=== PATIENT | female | born 1955 | race Caucasian/White ===

== ENCOUNTER 2017-11-10 09:08 | Outpatient (RCR) | payer OTHER, SELFPAY ==
[2017-11-10 10:10] VITALS: BP 141/94; PULSE 101; RESP 18; TEMP 36.8; BMI 30.9
[2017-11-10 14:18] LABS: Absolute Lymphocyte Count 2.17 X10^3/ul (0.83-4.51); Absolute Neutrophil Count 3.8 X10^3/uL (2.0-7.7); Basophil# 0.07 X10^3/uL; Basophil% 1.1 % (0-1); Eosinophil# 0.13 X10^3/uL; Hemoglobin 13.3 g/dl (12.0-15.0); Lymphocyte # 2.17 X10^3/ul (4.0); Lymphocyte % 32.8 % (19-41); Mean Corp Hgb Conc 31.7 g/gl (32-36); Mean Corpuscular Hgb 28.7 pg (27.0-32.0); Mean Corpuscular Volume 90.5 fL (81-99); Mean Platelet Vol. 9.9 fl (6.2-12.0); Monocyte# 0.39 X10^3/uL; Monocyte% 5.9 % (0-10); Neutrophil # 3.84 X10^3/uL (2.7-7.7); Platelet Count 455 K/mm3 (150-450); RBC Distribution Width SD 46.4 fl (35.1-43.9); Red Blood Count 4.64 M/mm3 (4.2-5.4); White Blood Count 6.6 K/mm3 (4.4-11.0)
[2017-11-10 14:22] LABS: POSITIVE COUNT NO; POSITIVE DIFFERENTIAL NO; POSITIVE MORPHOLOGY NO
[2017-11-10 14:28] LABS: ALB/GLOB Ratio 0.8 RATIO (0.9-2.4); AST(SGOT) 14 U/L (15-37); Alanine Aminotransfer ALT/SGPT 21 U/L (13-56); Albumin, Serum 3.6 g/dL (3.2-5.0); Alkaline Phosphatase 111 U/L (45-117); Anion Gap 8 (5-15); BUN 16 mg/dL (7-18); BUN/Creat Ratio 21.6 RATIO (10-20); Calcium,Total 9.2 mg/dL (8.5-10.1); Chloride 103 mmol/L (98-107); Creatinine, Serum 0.74 mg/dL (0.55-1.02); EST Glomerular Filtration Rate 85 mL/min (>60); Est Glom Filt Rate - Afr Amer 103 mL/min (>60); Estimated Creatinine Clearance 69.81 ml/min; Globulin 4.5 g/dL (2.2-4.2); Glucose 86 mg/dL (74-106); Potassium 3.9 mmol/L (3.5-5.1); Prealbumin 24.8 mg/dL (20.0-40.0); Protein, Total 8.1 g/dL (6.4-8.2); Sodium Level 138 mmol/L (136-145)
[2017-11-10 14:31] LABS: Hemoglobin A1c 5.7 % (4.2-6.3)
--- NOTE | 2017-11-10 17:29 | PCM.WC.HP ---
(1) Non-pressure chronic ulcer of left lower leg with fat layer exposed Status: Acute Current Visit: Yes Code(s): L97.922 - Non-pressure chronic ulcer of unspecified part of left lower leg with fat layer exposed (2) Hypertension Status: Chronic Current Visit: Yes Code(s): I10 - Essential (primary) hypertension (3) Cellulitis of left lower extremity Status: Acute Current Visit: Yes Code(s): L03.116 - Cellulitis of left lower limb History of Present Illness Date of Service: 11/10/17 Chief Complaint: Chronic Left lower extremity (ankle) ulcer. History of Wound: MS. Calle is a 62 year old with PMH of Hyperyension who was referred to the wound clinic due to a chronic non healing ulcer. Initially noticed in June 2017 as a small black blister. She denies any known precipitating factors.Blister was said to subsequently open up and then she started putting tripple antibiotic ointment on it. However, she states the she noted worsening of the wound after she started putting something she found in a First aid box at work. she is unsure of the name. She has also been putting essentail oil around the wound but denies putting it in the wound. Most recently, she has noted increased tenderness and redness of the the wound and area surrounding the wound. She attests to occassional discharge from the wound. She denies any known history of diabetes mellitus, arterial or venous insuficiency. she feels well otherwsie and denies chills, fever, nausea, vomitting or a change in her bowel habit. Past Medical History Past Medical History: Chronic Problems Hypertension (Chronic) Allergies/Adverse Reactions: Allergies No Known Allergies Allergy (Verified 11/10/17 10:23) Home Medications: Ambulatory Orders Medication Instructions Recorded Telmisartan 40 mg PO DAILY 11/10/17 Smoking Status: Never smoker Tobacco Use: Non-smoker Alcohol: None Review of Systems Constitutional: Denies: Anorexia, Chills, Fever Eyes: Denies: Pain, Redness HEENT: Denies: Difficulty Hearing, Difficulty Swallowing Cardiovascular: Denies: Chest Pain, Chest Tightness Respiratory: Denies: Hemoptysis Gastrointestinal: Denies: Abdominal Pain, Hematemesis, Vomiting - Physical Exam Vital Signs Temp Pulse Resp BP 98.2 F 101 H 18 141/94 H 11/10/17 10:10 11/10/17 10:10 11/10/17 10:10 11/10/17 10:10 General: Alert, Oriented x3, Cooperative, No apparent distress HEENT: Atraumatic, Normocephalic Oral: Moist Mucosa Neck: Supple Lungs: Normal air movement Cardiovascular: Regular rate Extremities: No cyanosis, Edema Skin: Ulcer/ Wound Wound Measurements and Assessment WC - Nurse 1 - General Ulcer Measurement Start: 11/10/17 10:09 Freq: Status: Active Protocol: Activity Type Activity Date Activity User E-Sign Co-Sign Detail Recorded Client Recorded Date Recorded By Document 11/10/17 10:10 [id number] 11/10/17 10:22 TM 11/10/17 10:10 Wound Center Nurse 1 [Ulcer Assessment] #1 left medial ankle -Combined with other wound No -Current Size (cm) - Length 1.9 -Current Size (cm) - Width 1.7 -Current Size (cm) - Depth 0.5 -Total Square Cm 3.23 -Date of Last Picture (Recall this 11/10/17 field) -Photo Taken Yes -Epithelialization None Present -Tunneling No -Undermining/Tunneling No -Circular Undermining Yes -Classification - Thickness Full Thickness with Exposed Support Structure -Exudate Amt Medium (34-66%) -Exudate Type Yellow/Green -Wound Margin Fibrotic Scar, Thickened Scar -Granulation Amt None Present (0 %) -Granulation Quality N/A -Slough/Fibrin Yes -Necrotic Tissue Type Adherent Slough -Structure Exposed Tendon Fascia Fat Layer Exposed -Texture (Emma-wound Skin Appearance) Excoriation Friable Localized Edema Scarring -Moisture (Emma-wound Skin Appearance No Abnormality ) -Color (Emma-wound Skin Appearance) Erythema Hemosiderin Staining -Temperature (Emma-wound Skin Hot Appearance) -Tenderness on Palpation (Emma-wound Yes Skin Appearance) -Ulcer Cleansing Rinsed/ Irrigated with Saline -Foul Odor after Cleansing No -Anesthetic Used 5% Lidocaine Gel [Edema Assessment] -Lower Limb Edema Present Yes -Right Calf (cm) 35.2 -Right Ankle (cm) 21.2 -Left Calf (cm) 39.5 -Left Ankle (cm) 24.8 WC - Nurse 2 - General Ulcer CM Notes Start: 11/10/17 10:09 Freq: Status: Active Protocol: Activity Type Activity Date Activity User E-Sign Co-Sign Detail Recorded Client Recorded Date Recorded By Document 11/10/17 10:22 DV [id number] 11/10/17 11:17 DV 11/10/17 10:22 Wound Center Nurse 2 [Procedure/Treatment] #1 left medial ankle -Time 11:16 -Correct Patient Yes -Correct Side, Site, Position Yes -Correct Procedure Yes -Procedure Performed Yes -Type of Procedure Debridement -Clinical Debridement Subcutaneous -Post Debridement Size (cm) - Length 1.9 -Post Debridement Size (cm) - Width 2.0 -Post Debridement Size (cm) - Depth 0.6 -Total Square Cm 3.80 -Wound/Ulcer Outcome Not Healed -Ulcer Cleansing Rinsed/ Irrigated with Saline -Foul Odor after Cleansing No -Bioengineered Tissue No -Bleeding Controlled with Pressure -Treatment Response Procedure Tolerated Well [See Physician Procedure note for Specifics] Pain Scale: 0-10 Numeric [Pain] -Is Patient Pain Free? Yes Musculoskeletal: No Muscle Wasting Neurological: Cranial nerves II-XII grossly intact Psych/Mental Status: Normal Affect Debridement Note Post-Debridement Measurements/Treatment WC - Nurse 2 - General Ulcer CM Notes Start: 11/10/17 10:09 Freq: Status: Active Protocol: Activity Type Activity Date Activity User E-Sign Co-Sign Detail Recorded Client Recorded Date Recorded By Document 11/10/17 10:22 DV [id number] 11/10/17 11:17 DV 11/10/17 10:22 Wound Center Nurse 2 #1 left medial ankle -Time 11:16 -Correct Patient Yes -Correct Side, Site, Position Yes -Correct Procedure Yes -Procedure Performed Yes -Type of Procedure Debridement -Clinical Debridement Subcutaneous -Post Debridement Size (cm) - Length 1.9 -Post Debridement Size (cm) - Width 2.0 -Post Debridement Size (cm) - Depth 0.6 -Total Square Cm 3.80 -Wound/Ulcer Outcome Not Healed -Ulcer Cleansing Rinsed/ Irrigated with Saline -Foul Odor after Cleansing No -Bioengineered Tissue No -Bleeding Controlled with Pressure -Treatment Response Procedure Tolerated Well Pain Scale: 0-10 Numeric Is Patient Pain Free? Yes Wound debrided: Left medial ankle. Wound Grade/Stage: Non pressure ulcer. Stage II Type of Debridement: Excisional debridement Anesthesia Used: 4% Lidocaine Solution Depth: Down to and including healthy tissue, in the subcutaneous layer Percentage of wound debrided: 100 Instrument Used: 7mm curette Tissue Removed: Slough and Devitalized tissue Severity: Fat Layer Exposed Amount of bleeding with debridement: Mild Bleeding Controlled with: Pressure Patient tolerated procedure well Assessment/Plan Active Problems Non-pressure chronic ulcer of left lower leg with fat layer exposed (Acute) Hypertension (Chronic) Cellulitis of left lower extremity (Acute) Assessment: Chronic non healing non pressure ulcer of left lower leg ( ankle ) Stage II. Left lower leg cellulitis. Hypertension. Plan: Patient with a chronic non pressure ulcer of unknown etiology. However, said to have been exacerbated to its current state by a substance/ product she got from the first aid box at work. she is unsure of what it was. Has applied tripple antibiotic ointments and essential oils until now. Erythema, differential warmth and tenderness noted consistent with cellulitis. Significant slough burden also noted in wound. Gentle debridemnt done as documented above. Procedure was well tolerated. Cultures taken and labs ordered including a CBC, CMP , A1C and preabumin. Vascular and Venous studies also ordered. Due to significant slough burden, will start out with daily dressing with Santyl. Kimebt will be a good candidate for skin substitutes due to the chronicity of the wound and progression. Will start on Levofloxacin 750mg daily x 1 week for cellulitis. Will adjust based on culture/sensitivity results. Advised to increase her protein intake. Elevate lower extremity when seated. Avoid idle standing. Follow up in 1 week.
== END 2017-11-16 23:59 ==
LOC: WC 09:08
PROVIDERS: PCP Family Medicine; Visit Provider Internal Medicine
DX: L97.322 Non-pressure chronic ulcer of left ankle with fat layer exposed (principal); R60.0 Localized edema; L03.116 Cellulitis of left lower limb; I10 Essential (primary) hypertension; R09.89 Other specified symptoms and signs involving the circulatory and respiratory systems; M25.572 Pain in left ankle and joints of left foot
CPT/HCPCS: 11042; 80053; 83036; 84134; 85025; 87070; 87075; 87077; 87186; 87205; 99204; G0463

== ENCOUNTER 2017-12-08 11:30 | Outpatient (RCR) | payer OTHER, SELFPAY ==
[2017-11-17 01:16] VITALS: PULSE 101; RESP 18; TEMP 36.8
[2017-11-17 11:12] VITALS: BP 154/80; PULSE 108; RESP 18; TEMP 37.4
--- NOTE | 2017-11-17 16:13 | PCM.WC.PN ---
(1) Cellulitis of left lower extremity Status: Chronic Current Visit: No Code(s): L03.116 - Cellulitis of left lower limb (2) Non-pressure chronic ulcer of left lower leg with fat layer exposed Status: Chronic Current Visit: No Code(s): L97.922 - Non-pressure chronic ulcer of unspecified part of left lower leg with fat layer exposed Type of Wound Date of Service: 11/17/17 Chief Complaint: Chronic Left lower extremity (ankle) ulcer. History of Wound: MS. Calle is a 62 year old with PMH of Hyperyension who was referred to the wound clinic due to a chronic non healing ulcer. Initially noticed in June 2017 as a small black blister. She denies any known precipitating factors.Blister was said to subsequently open up and then she started putting tripple antibiotic ointment on it. However, she states the she noted worsening of the wound after she started putting something she found in a First aid box at work. she is unsure of the name. She has also been putting essentail oil around the wound but denies putting it in the wound. Most recently, she has noted increased tenderness and redness of the the wound and area surrounding the wound. She attests to occassional discharge from the wound. She denies any known history of diabetes mellitus, arterial or venous insuficiency. she feels well otherwsie and denies chills, fever, nausea, vomitting or a change in her bowel habit. Progress of Wound: Stable. No new complaints. Culture with both MRSA and Anaerobic growth. - Physical Exam Vital Signs Temp Pulse Resp BP 99.3 F H 108 H 18 154/80 H 11/17/17 11:12 11/17/17 11:12 11/17/17 11:12 11/17/17 11:12 General: Alert, Oriented x3, Cooperative, No apparent distress HEENT: Atraumatic, Normocephalic Oral: Moist Mucosa Neck: Supple Lungs: Normal air movement Cardiovascular: Regular rate Extremities: No cyanosis Skin: Ulcer/ Wound Wound Measurements and Assessment WC - Nurse 1 - General Ulcer Measurement Start: 11/17/17 11:12 Freq: Status: Active Protocol: Activity Type Activity Date Activity User E-Sign Co-Sign Detail Recorded Client Recorded Date Recorded By Document 11/17/17 11:12 DL [id number] 11/17/17 11:23 DL 11/17/17 11:12 Wound Center Nurse 1 [Ulcer Assessment] #1 left medial ankle -Current Size (cm) - Length 1.7 -Current Size (cm) - Width 2 -Current Size (cm) - Depth 1.6 -Total Square Cm 3.4 -Photo Taken No -Exudate Amt Medium (34-66%) -Exudate Type Serosanguineous -Wound Margin Distinct, Outline Attached -Granulation Amt Medium (34-66%) -Granulation Quality Red -Necrosis Amt Medium (34-66%) -Necrotic Tissue Type Adherent Slough -Structure Exposed N/A -Texture (Emma-wound Skin Appearance) Scarring -Moisture (Emma-wound Skin Appearance Maceration ) -Color (Emma-wound Skin Appearance) Hemosiderin Staining -Temperature (Emma-wound Skin No Abnormality Appearance) (Pt Warm) -Tenderness on Palpation (Emma-wound No Skin Appearance) -Ulcer Cleansing Wound Cleanser -Foul Odor after Cleansing No -Anesthetic Used 4% Lidocaine Solution WC - Nurse 2 - General Ulcer CM Notes Start: 11/17/17 11:12 Freq: Status: Active Protocol: Activity Type Activity Date Activity User E-Sign Co-Sign Detail Recorded Client Recorded Date Recorded By Document 11/17/17 12:02 [id number] 11/17/17 12:05 DV 11/17/17 12:02 Wound Center Nurse 2 [Procedure/Treatment] -Time 12:02 -Correct Patient Yes -Correct Side, Site, Position Yes -Correct Procedure Yes -Procedure Performed Yes -Type of Procedure Debridement -Clinical Debridement Subcutaneous -Post Debridement Size (cm) - Length 1.9 -Post Debridement Size (cm) - Width 1.9 -Post Debridement Size (cm) - Depth 0.5 -Total Square Cm 3.61 -Wound/Ulcer Outcome Not Healed -Ulcer Cleansing Rinsed/ Irrigated with Saline -Foul Odor after Cleansing No -Bioengineered Tissue No -Bleeding Controlled with Pressure -Treatment Response Procedure Tolerated Well [See Physician Procedure note for Specifics] Pain Scale: 0-10 Numeric [Pain] -Is Patient Pain Free? Yes Musculoskeletal: No Muscle Wasting Neurological: Cranial nerves II-XII grossly intact Psych/Mental Status: Normal Affect Debridement Note Post-Debridement Measurements/Treatment WC - Nurse 2 - General Ulcer CM Notes Start: 11/17/17 11:12 Freq: Status: Active Protocol: Activity Type Activity Date Activity User E-Sign Co-Sign Detail Recorded Client Recorded Date Recorded By Document 11/17/17 12:02 DV [id number] 11/17/17 12:05 DV 11/17/17 12:02 Wound Center Nurse 2 #1 left medial ankle -Time 12:02 -Correct Patient Yes -Correct Side, Site, Position Yes -Correct Procedure Yes -Procedure Performed Yes -Type of Procedure Debridement -Clinical Debridement Subcutaneous -Post Debridement Size (cm) - Length 1.9 -Post Debridement Size (cm) - Width 1.9 -Post Debridement Size (cm) - Depth 0.5 -Total Square Cm 3.61 -Wound/Ulcer Outcome Not Healed -Ulcer Cleansing Rinsed/ Irrigated with Saline -Foul Odor after Cleansing No -Bioengineered Tissue No -Bleeding Controlled with Pressure -Treatment Response Procedure Tolerated Well Pain Scale: 0-10 Numeric Is Patient Pain Free? Yes Wound debrided: Left Lower extremity medial ankle. Wound Grade/Stage: Stage II Type of Debridement: Excisional debridement Anesthesia Used: 4% Lidocaine Solution Depth: Down to and including healthy tissue, in the subcutaneous layer Percentage of wound debrided: 100 Instrument Used: 5mm curette Tissue Removed: Slough and devitalized tissue Severity: Fat Layer Exposed Amount of bleeding with debridement: Mild Bleeding Controlled with: Pressure Patient tolerated procedure well Assessment/Plan Assessment: Chronic non healing non pressure ulcer of left lower leg ( ankle ) Stage II. Left lower leg cellulitis. Hypertension. Plan: Cellulitis has significantly improved however, still evidence of persisting cellulitis. Cultures done at her initial visit grew MRSA ( 4+ ) and Bacteroides Vulgatus. Still significant slough burden however, not as adherent and patient was better tolerant of debridement today. Debridement done as documented above. Will switch Abx to Clindamycin and Flagyl to cover above organisms. Advised to increase probiotic during use. Continue daily dressing with Santyl. Avoid idle standing. Elevate lower extremity when sitted. Follow up in 1 week.
[2017-11-24 10:04] VITALS: BP 153/84; PULSE 107; RESP 18; TEMP 36.6
--- NOTE | 2017-11-24 15:47 | PCM.WC.PN ---
(1) Cellulitis of left lower extremity Status: Chronic Current Visit: No Code(s): L03.116 - Cellulitis of left lower limb (2) Non-pressure chronic ulcer of left lower leg with fat layer exposed Status: Chronic Current Visit: Yes Code(s): L97.922 - Non-pressure chronic ulcer of unspecified part of left lower leg with fat layer exposed Type of Wound Date of Service: 11/24/17 Chief Complaint: Chronic Left lower extremity (ankle) ulcer. History of Wound: MS. Calle is a 62 year old with PMH of Hyperyension who was referred to the wound clinic due to a chronic non healing ulcer. Initially noticed in June 2017 as a small black blister. She denies any known precipitating factors.Blister was said to subsequently open up and then she started putting tripple antibiotic ointment on it. However, she states the she noted worsening of the wound after she started putting something she found in a First aid box at work. she is unsure of the name. She has also been putting essentail oil around the wound but denies putting it in the wound. Most recently, she has noted increased tenderness and redness of the the wound and area surrounding the wound. She attests to occassional discharge from the wound. She denies any known history of diabetes mellitus, arterial or venous insuficiency. she feels well otherwsie and denies chills, fever, nausea, vomitting or a change in her bowel habit. Progress of Wound: Improving. - Physical Exam Vital Signs Temp Pulse Resp BP 97.8 F 107 H 18 153/84 H 11/24/17 10:04 11/24/17 10:04 11/24/17 10:04 11/24/17 10:04 General: Alert, Oriented x3, Cooperative, No apparent distress HEENT: Atraumatic, Normocephalic Oral: Moist Mucosa Neck: Supple Lungs: Normal air movement Cardiovascular: Regular rate Extremities: No cyanosis, Edema Skin: Ulcer/ Wound Wound Measurements and Assessment WC - Nurse 1 - General Ulcer Measurement Start: 11/17/17 11:12 Freq: Status: Active Protocol: Activity Type Activity Date Activity User E-Sign Co-Sign Detail Recorded Client Recorded Date Recorded By Document 11/24/17 10:04 RB [id number] 11/24/17 10:17 RB 11/24/17 10:04 Wound Center Nurse 1 [Ulcer Assessment] #1 left medial ankle -Combined with other wound No -Current Size (cm) - Length 1.4 -Current Size (cm) - Width 1.8 -Current Size (cm) - Depth 0.5 -Total Square Cm 2.52 -Photo Taken No -Tunneling No -Undermining/Tunneling No -Circular Undermining No -Classification - Thickness Full Thickness with Exposed Support Structure -Exudate Amt Small (1-33%) -Exudate Type Serosanguineous -Wound Margin Thickened & Rolled Under -Granulation Amt Medium (34-66%) -Granulation Quality [place] -Slough/Fibrin Yes -Necrosis Amt Medium (34-66%) -Necrotic Tissue Type Adherent Slough -Structure Exposed N/A -Texture (Emma-wound Skin Appearance) Assessed -Moisture (Emma-wound Skin Appearance Assessed ) -Color (Emma-wound Skin Appearance) Erythema -Temperature (Emma-wound Skin No Abnormality Appearance) (Pt Warm) -Tenderness on Palpation (Emma-wound No Skin Appearance) -Ulcer Cleansing Rinsed/ Irrigated with Saline -Foul Odor after Cleansing No -Anesthetic Used 4% Lidocaine Solution [Edema Assessment] -Left Calf (cm) 40.4 -Left Ankle (cm) 23.5 WC - Nurse 2 - General Ulcer CM Notes Start: 11/17/17 11:12 Freq: Status: Active Protocol: Activity Type Activity Date Activity User E-Sign Co-Sign Detail Recorded Client Recorded Date Recorded By Document 11/24/17 10:38 DV [id number] 11/24/17 10:42 DV 11/24/17 10:38 Wound Center Nurse 2 [Procedure/Treatment] #1 left medial ankle -Time 10:39 -Correct Patient Yes -Correct Side, Site, Position Yes -Correct Procedure Yes -Procedure Performed Yes -Type of Procedure Debridement -Clinical Debridement Subcutaneous -Post Debridement Size (cm) - Length 1.4 -Post Debridement Size (cm) - Width 2.0 -Post Debridement Size (cm) - Depth 0.4 -Total Square Cm 2.80 -Wound/Ulcer Outcome Not Healed -Ulcer Cleansing Rinsed/ Irrigated with Saline -Foul Odor after Cleansing No -Bioengineered Tissue No -Bleeding Controlled with Pressure -Treatment Response Procedure Tolerated Well [See Physician Procedure note for Specifics] Pain Scale: 0-10 Numeric [Pain] -Is Patient Pain Free? Yes Musculoskeletal: No Muscle Wasting Neurological: Cranial nerves II-XII grossly intact Psych/Mental Status: Normal Affect Debridement Note Post-Debridement Measurements/Treatment WC - Nurse 2 - General Ulcer CM Notes Start: 11/17/17 11:12 Freq: Status: Active Protocol: Activity Type Activity Date Activity User E-Sign Co-Sign Detail Recorded Client Recorded Date Recorded By Document 11/17/17 12:02 DV [id number] 11/17/17 12:05 DV Document 11/24/17 10:38 DV [id number] 11/24/17 10:42 DV 11/17/17 11/24/17 12:02 10:38 Wound Center Nurse 2 #1 left medial ankle -Time 12:02 10:39 -Correct Patient Yes Yes -Correct Side, Site, Position Yes Yes -Correct Procedure Yes Yes -Procedure Performed Yes Yes -Type of Procedure Debridement Debridement -Clinical Debridement Subcutaneous Subcutaneous -Post Debridement Size (cm) - Length 1.9 1.4 -Post Debridement Size (cm) - Width 1.9 2.0 -Post Debridement Size (cm) - Depth 0.5 0.4 -Total Square Cm 3.61 2.80 -Wound/Ulcer Outcome Not Healed Not Healed -Ulcer Cleansing Rinsed/ Rinsed/ Irrigated with Irrigated with Saline Saline -Foul Odor after Cleansing No No -Bioengineered Tissue No No -Bleeding Controlled with Pressure Pressure -Treatment Response Procedure Procedure Tolerated Well Tolerated Well Pain Scale: 0-10 Numeric Is Patient Pain Free? Yes Yes Wound debrided: left lower extremity medial ankle. Wound Grade/Stage: Stage II Type of Debridement: Excisional debridement Anesthesia Used: 4% Lidocaine Solution Depth: Down to and including healthy tissue, in the subcutaneous layer Percentage of wound debrided: 100 Instrument Used: 5mm curette Tissue Removed: slough, biofilm and devitalized tissue Severity: Fat Layer Exposed Amount of bleeding with debridement: Mild Bleeding Controlled with: Pressure Patient tolerated procedure well Assessment/Plan Active Problems Non-pressure chronic ulcer of left lower leg with fat layer exposed (Chronic) Assessment: Chronic non healing non pressure ulcer of left lower leg ( ankle ) Stage II. Left lower leg cellulitis. Hypertension. Plan: She continues to show improvement. Cellulitis has resolved for the most part. Area of mild masceration however noted around the wound margin. She has almost completed her course of ABX. Debridement done as documented above. Procedure was well tolerated. Continue santyl for 1 more week. Will switch to Purapply at next visit. Complete course of ABX. Avoid idle standing. Elevate lower extremity when sitted. Follow up in 1 week. This note was generated with [employer] dictation software. It may contain incorrect words, spelling, and punctuation that were not noted in checking the note before signing.
--- NOTE | 2017-11-24 15:53 | PN.PCM_ITS ---
(1) Cellulitis of left lower extremity Status: Chronic Current Visit: No Code(s): L03.116 - Cellulitis of left lower limb (2) Non-pressure chronic ulcer of left lower leg with fat layer exposed Status: Chronic Current Visit: Yes Code(s): L97.922 - Non-pressure chronic ulcer of unspecified part of left lower leg with fat layer exposed Type of Wound Date of Service: 11/24/17 Chief Complaint: Chronic Left lower extremity (ankle) ulcer. History of Wound: MS. Calle is a 62 year old with PMH of Hyperyension who was referred to the wound clinic due to a chronic non healing ulcer. Initially noticed in June 2017 as a small black blister. She denies any known precipitating factors.Blister was said to subsequently open up and then she started putting tripple antibiotic ointment on it. However, she states the she noted worsening of the wound after she started putting something she found in a First aid box at work. she is unsure of the name. She has also been putting essentail oil around the wound but denies putting it in the wound. Most recently, she has noted increased tenderness and redness of the the wound and area surrounding the wound. She attests to occassional discharge from the wound. She denies any known history of diabetes mellitus, arterial or venous insuficiency. she feels well otherwsie and denies chills, fever, nausea, vomitting or a change in her bowel habit. Progress of Wound: Improving. - Physical Exam Vital Signs Temp Pulse Resp BP 97.8 F 107 H 18 153/84 H 11/24/17 10:04 11/24/17 10:04 11/24/17 10:04 11/24/17 10:04 General: Alert, Oriented x3, Cooperative, No apparent distress HEENT: Atraumatic, Normocephalic Oral: Moist Mucosa Neck: Supple Lungs: Normal air movement Cardiovascular: Regular rate Extremities: No cyanosis, Edema Skin: Ulcer/ Wound Wound Measurements and Assessment WC - Nurse 1 - General Ulcer Measurement Start: 11/17/17 11:12 Freq: Status: Active Protocol: Activity Type Activity Date Activity User E-Sign Co-Sign Detail Recorded Client Recorded Date Recorded By Document 11/24/17 10:04 RB [id number] 11/24/17 10:17 RB 11/24/17 10:04 Wound Center Nurse 1 [Ulcer Assessment] #1 left medial ankle -Combined with other wound No -Current Size (cm) - Length 1.4 -Current Size (cm) - Width 1.8 -Current Size (cm) - Depth 0.5 -Total Square Cm 2.52 -Photo Taken No -Tunneling No -Undermining/Tunneling No -Circular Undermining No -Classification - Thickness Full Thickness with Exposed Support Structure -Exudate Amt Small (1-33%) -Exudate Type Serosanguineous -Wound Margin Thickened & Rolled Under -Granulation Amt Medium (34-66%) -Granulation Quality [place] -Slough/Fibrin Yes -Necrosis Amt Medium (34-66%) -Necrotic Tissue Type Adherent Slough -Structure Exposed N/A -Texture (Emma-wound Skin Appearance) Assessed -Moisture (Emma-wound Skin Appearance Assessed ) -Color (Emma-wound Skin Appearance) Erythema -Temperature (Emma-wound Skin No Abnormality Appearance) (Pt Warm) -Tenderness on Palpation (Emma-wound No Skin Appearance) -Ulcer Cleansing Rinsed/ Irrigated with Saline -Foul Odor after Cleansing No -Anesthetic Used 4% Lidocaine Solution [Edema Assessment] -Left Calf (cm) 40.4 -Left Ankle (cm) 23.5 WC - Nurse 2 - General Ulcer CM Notes Start: 11/17/17 11:12 Freq: Status: Active Protocol: Activity Type Activity Date Activity User E-Sign Co-Sign Detail Recorded Client Recorded Date Recorded By Document 11/24/17 10:38 DV [id number] 11/24/17 10:42 DV 11/24/17 10:38 Wound Center Nurse 2 [Procedure/Treatment] #1 left medial ankle -Time 10:39 -Correct Patient Yes -Correct Side, Site, Position Yes -Correct Procedure Yes -Procedure Performed Yes -Type of Procedure Debridement -Clinical Debridement Subcutaneous -Post Debridement Size (cm) - Length 1.4 -Post Debridement Size (cm) - Width 2.0 -Post Debridement Size (cm) - Depth 0.4 -Total Square Cm 2.80 -Wound/Ulcer Outcome Not Healed -Ulcer Cleansing Rinsed/ Irrigated with Saline -Foul Odor after Cleansing No -Bioengineered Tissue No -Bleeding Controlled with Pressure -Treatment Response Procedure Tolerated Well [See Physician Procedure note for Specifics] Pain Scale: 0-10 Numeric [Pain] -Is Patient Pain Free? Yes Musculoskeletal: No Muscle Wasting Neurological: Cranial nerves II-XII grossly intact Psych/Mental Status: Normal Affect Debridement Note Post-Debridement Measurements/Treatment WC - Nurse 2 - General Ulcer CM Notes Start: 11/17/17 11:12 Freq: Status: Active Protocol: Activity Type Activity Date Activity User E-Sign Co-Sign Detail Recorded Client Recorded Date Recorded By Document 11/17/17 12:02 DV [id number] 11/17/17 12:05 DV Document 11/24/17 10:38 DV [id number] 11/24/17 10:42 DV 11/17/17 11/24/17 12:02 10:38 Wound Center Nurse 2 #1 left medial ankle -Time 12:02 10:39 -Correct Patient Yes Yes -Correct Side, Site, Position Yes Yes -Correct Procedure Yes Yes -Procedure Performed Yes Yes -Type of Procedure Debridement Debridement -Clinical Debridement Subcutaneous Subcutaneous -Post Debridement Size (cm) - Length 1.9 1.4 -Post Debridement Size (cm) - Width 1.9 2.0 -Post Debridement Size (cm) - Depth 0.5 0.4 -Total Square Cm 3.61 2.80 -Wound/Ulcer Outcome Not Healed Not Healed -Ulcer Cleansing Rinsed/ Rinsed/ Irrigated with Irrigated with Saline Saline -Foul Odor after Cleansing No No -Bioengineered Tissue No No -Bleeding Controlled with Pressure Pressure -Treatment Response Procedure Procedure Tolerated Well Tolerated Well Pain Scale: 0-10 Numeric Is Patient Pain Free? Yes Yes Wound debrided: left lower extremity medial ankle. Wound Grade/Stage: Stage II Type of Debridement: Excisional debridement Anesthesia Used: 4% Lidocaine Solution Depth: Down to and including healthy tissue, in the subcutaneous layer Percentage of wound debrided: 100 Instrument Used: 5mm curette Tissue Removed: slough, biofilm and devitalized tissue Severity: Fat Layer Exposed Amount of bleeding with debridement: Mild Bleeding Controlled with: Pressure Patient tolerated procedure well Assessment/Plan Active Problems Non-pressure chronic ulcer of left lower leg with fat layer exposed (Chronic) Assessment: Chronic non healing non pressure ulcer of left lower leg ( ankle ) Stage II. Left lower leg cellulitis. Hypertension. Plan: She continues to show improvement. Cellulitis has resolved for the most part. Area of mild masceration however noted around the wound margin. She has almost completed her course of ABX. Debridement done as documented above. Procedure was well tolerated. Continue santyl for 1 more week. Will switch to Purapply at next visit. Complete course of ABX. Avoid idle standing. Elevate lower extremity when sitted. Follow up in 1 week. This note was generated with [employer] dictation software. It may contain incorrect words, spelling, and punctuation that were not noted in checking the note before signing.
--- NOTE | 2017-11-25 12:50 | VDLE_ITS ---
Reason For Study: Pain, Swelling, Ulcer RIGHT LEFT CFV is compressible, spontaneous, phasic, CFV is compressible, spontaneous, phasic, competent and demonstrates normal competent, and demonstrates normal augmentation. augmentation. FV is compressible, spontaneous, phasic, FV is compressible, spontaneous, phasic, competent and demonstrates normal competent and demonstrates normal augmentation. augmentation. POP V is compressible, spontaneous, phasic, POP V is compressible, spontaneous, phasic, competent and demonstrates normal competent and demonstrates normal augmentation. augmentation. T/P Trunk is compressible. T/P Trunk is compressible. PTV is compressible. PTV is compressible. RT PerV is compressible. LT PerV is compressible. Rt SFJ is Competent Lt SFJ is Incompetent Rt GSV is Incompetent with reflux greater Lt GSV is Incompetent w reflux greater than than 0.5 sec and a diameter of 0.33cm x 0.5 sec and a diameter of 0.49cm x 0.47cm in 0.38cm in the thigh and 0.13cm x 0.11cm in the thigh and 0.40cm x 0.41cm in the calf the calf Lt GSV out of compartment from mid thigh to Rt GSV is out of compartment from mid thigh mid calf to mid calf Lt SSV is Competent Rt GSV mid calf labeled incorrectly as prox calf LT GSV and Lt SSV are partially compressible with bright intraluminal echoes consistent Rt SSV is Incompetent w reflux greater than with chronic SVT. 0.5 sec and a diameter of 0.15cm x 0.18cm Rt SSV is partially compressible with bright intraluminal echoes consistent with chronic SVT. Procedure Exam performed in department. A preliminary report was called and/or faxed to Wound Center. Interpretation Summary Deep veins of the lower extremities are bilaterally patent and compressible segmentally. There is no evidence of deep vein thrombosis on either side. Valvular competence appears intact within the proximal deep venous systems bilaterally. The right sapheno-femoral junction is competent . The left sapheno-femoral junction is incompetent . Segmental valvular incompetence is noted within the greater saphenous veins bilaterally. Chronic venous changes are noted in the left greater saphenous vein. The right small saphenous vein is incompetent and demonstrates chronic venous changes. The left small saphenous vein is competent and demonstrates chronic venous changes. Ordering Physician: Homer Monson Referring Physician: ENEIDA KEYS Performed By: Tracy Anderson RDCS, RVT
--- NOTE | 2017-11-26 08:27 | LEAS ---
Arterial Study - Arterial Study Arterial Study: This is a 62-year-old female with a history of hypertension. The patient presents with cellulitis and ulceration near the left ankle. Suspecting the presence of atherosclerotic peripheral arterial occlusive disease, the patient was brought to the noninvasive vascular laboratory at this time for the purpose of bilateral noninvasive lower extremity arterial assessment. Doppler signal assessment was used to evaluate the pulses at ankle level bilaterally. The posterior tibial and dorsalis pedis pulses were triphasic bilaterally. Segmental limb pressures were obtained bilaterally. The right ankle pressure, as determined by posterior tibial pulse, was measured at 161 mmHg. The right ankle pressure, as determined by dorsalis pedis pulse, was measured at 164 mmHg. The right digital pressure was measured at 72 mmHg. The left ankle pressure, as determined by posterior tibial pulse, was measured at 158 mmHg. The left ankle pressure, as determined by dorsalis pedis pulse, was measured at 160 mmHg. The left digital pressure was measured at 47 mmHg. Pulse-volume recordings were obtained bilaterally and segmentally. Waveform amplitudes appeared to be satisfactory at low thigh, calf, and ankle levels bilaterally. Waveform amplitudes were diminished bilaterally at digital level. Resting ankle-brachial indices were calculated bilaterally. The resting right ankle-brachial index was calculated to be 1.06. The resting left ankle-brachial index was calculated to be 1.03. Digital-brachial indices were calculated bilaterally. The right digital-brachial index was calculated to be 0.46. The left digital-brachial index was calculated to be 0.30. Impression: Based upon the findings of this resting noninvasive lower extremity arterial study, arterial perfusion appears to be relatively normal to ankle level bilaterally. Triphasic waveforms were noted at ankle level bilaterally. Resting ankle-brachial indices are bilaterally normal. The right digital-brachial index is moderately diminished, consistent with moderate, distal, small-vessel arterial occlusive disease in the right lower extremity. The left digital-brachial index is severely diminished, suggesting the presence of severe, distal, small-vessel arterial occlusive disease in the left lower extremity. Clinical correlation is advised.
--- NOTE | 2017-11-26 08:30 | LEAS_ITS ---
Arterial Study - Arterial Study Arterial Study: This is a 62-year-old female with a history of hypertension. The patient presents with cellulitis and ulceration near the left ankle. Suspecting the presence of atherosclerotic peripheral arterial occlusive disease, the patient was brought to the noninvasive vascular laboratory at this time for the purpose of bilateral noninvasive lower extremity arterial assessment. Doppler signal assessment was used to evaluate the pulses at ankle level bilaterally. The posterior tibial and dorsalis pedis pulses were triphasic bilaterally. Segmental limb pressures were obtained bilaterally. The right ankle pressure, as determined by posterior tibial pulse, was measured at 161 mmHg. The right ankle pressure, as determined by dorsalis pedis pulse, was measured at 164 mmHg. The right digital pressure was measured at 72 mmHg. The left ankle pressure, as determined by posterior tibial pulse, was measured at 158 mmHg. The left ankle pressure, as determined by dorsalis pedis pulse, was measured at 160 mmHg. The left digital pressure was measured at 47 mmHg. Pulse-volume recordings were obtained bilaterally and segmentally. Waveform amplitudes appeared to be satisfactory at low thigh, calf, and ankle levels bilaterally. Waveform amplitudes were diminished bilaterally at digital level. Resting ankle-brachial indices were calculated bilaterally. The resting right ankle-brachial index was calculated to be 1.06. The resting left ankle- brachial index was calculated to be 1.03. Digital-brachial indices were calculated bilaterally. The right digital- brachial index was calculated to be 0.46. The left digital-brachial index was calculated to be 0.30. Impression: Based upon the findings of this resting noninvasive lower extremity arterial study, arterial perfusion appears to be relatively normal to ankle level bilaterally. Triphasic waveforms were noted at ankle level bilaterally. Resting ankle-brachial indices are bilaterally normal. The right digital- brachial index is moderately diminished, consistent with moderate, distal, small -vessel arterial occlusive disease in the right lower extremity. The left digital-brachial index is severely diminished, suggesting the presence of severe , distal, small-vessel arterial occlusive disease in the left lower extremity. Clinical correlation is advised.
[2017-12-01 09:55] VITALS: BP 159/83; PULSE 110; RESP 18; TEMP 36.5
--- NOTE | 2017-12-01 13:25 | PCM.WC.PN ---
(1) Cellulitis of left lower extremity Status: Chronic Current Visit: No Code(s): L03.116 - Cellulitis of left lower limb (2) Non-pressure chronic ulcer of left lower leg with fat layer exposed Status: Chronic Current Visit: Yes Code(s): L97.922 - Non-pressure chronic ulcer of unspecified part of left lower leg with fat layer exposed Type of Wound Date of Service: 12/01/17 Chief Complaint: Chronic Left lower extremity (ankle) ulcer. History of Wound: MS. Calle is a 62 year old with PMH of Hyperyension who was referred to the wound clinic due to a chronic non healing ulcer. Initially noticed in June 2017 as a small black blister. She denies any known precipitating factors.Blister was said to subsequently open up and then she started putting tripple antibiotic ointment on it. However, she states the she noted worsening of the wound after she started putting something she found in a First aid box at work. she is unsure of the name. She has also been putting essentail oil around the wound but denies putting it in the wound. Most recently, she has noted increased tenderness and redness of the the wound and area surrounding the wound. She attests to occassional discharge from the wound. She denies any known history of diabetes mellitus, arterial or venous insuficiency. she feels well otherwsie and denies chills, fever, nausea, vomitting or a change in her bowel habit. Progress of Wound: Stable. - Physical Exam Vital Signs Temp Pulse Resp BP 97.7 F L 110 H 18 159/83 H 12/01/17 09:55 12/01/17 09:55 12/01/17 09:55 12/01/17 09:55 General: Alert, Oriented x3, Cooperative, No apparent distress HEENT: Atraumatic, Normocephalic Oral: Moist Mucosa Neck: Supple Lungs: Normal air movement Cardiovascular: Regular rate Extremities: No cyanosis, Edema Skin: Ulcer/ Wound Wound Measurements and Assessment WC - Nurse 1 - General Ulcer Measurement Start: 11/17/17 11:12 Freq: Status: Active Protocol: Activity Type Activity Date Activity User E-Sign Co-Sign Detail Recorded Client Recorded Date Recorded By Document 12/01/17 09:55 DL [id number] 12/01/17 10:02 DL 12/01/17 09:55 Wound Center Nurse 1 [Ulcer Assessment] #1 left medial ankle -Current Size (cm) - Length 1.3 -Current Size (cm) - Width 1.6 -Current Size (cm) - Depth 0.5 -Total Square Cm 2.08 -Photo Taken No -Exudate Amt Medium (34-66%) -Exudate Type Serosanguineous -Wound Margin Thickened & Rolled Under -Granulation Amt Large (67-100%) -Granulation Quality [place] -Necrosis Amt Small (1-33%) -Necrotic Tissue Type Adherent Slough -Structure Exposed N/A -Texture (Emma-wound Skin Appearance) Scarring -Moisture (Emma-wound Skin Appearance Maceration ) -Color (Emma-wound Skin Appearance) No Abnormality -Ulcer Cleansing Rinsed/ Irrigated with Saline -Anesthetic Used 4% Lidocaine Solution WC - Nurse 2 - General Ulcer CM Notes Start: 11/17/17 11:12 Freq: Status: Active Protocol: Activity Type Activity Date Activity User E-Sign Co-Sign Detail Recorded Client Recorded Date Recorded By Document 12/01/17 10:27 DV [id number] 12/01/17 10:32 DV 12/01/17 10:27 Wound Center Nurse 2 [Procedure/Treatment] -Time 10:29 -Correct Patient Yes -Correct Side, Site, Position Yes -Correct Procedure Yes -Procedure Performed Yes -Type of Procedure Debridement -Clinical Debridement Subcutaneous -Post Debridement Size (cm) - Length 1.5 -Post Debridement Size (cm) - Width 1.8 -Post Debridement Size (cm) - Depth 0.4 -Total Square Cm 2.70 -Wound/Ulcer Outcome Not Healed -Ulcer Cleansing Rinsed/ Irrigated with Saline -Foul Odor after Cleansing No -Bioengineered Tissue No -Bleeding Controlled with Pressure -Treatment Response Procedure Tolerated Well [See Physician Procedure note for Specifics] Pain Scale: 0-10 Numeric [Pain] -Is Patient Pain Free? Yes Musculoskeletal: No Muscle Wasting Neurological: Cranial nerves II-XII grossly intact Psych/Mental Status: Normal Affect Debridement Note Post-Debridement Measurements/Treatment WC - Nurse 2 - General Ulcer CM Notes Start: 11/17/17 11:12 Freq: Status: Active Protocol: Activity Type Activity Date Activity User E-Sign Co-Sign Detail Recorded Client Recorded Date Recorded By Document 11/17/17 12:02 DV [id number] 11/17/17 12:05 DV Document 11/24/17 10:38 DV [id number] 11/24/17 10:42 DV Document 12/01/17 10:27 DV [id number] 12/01/17 10:32 DV 11/17/17 11/24/17 12/01/17 12:02 10:38 10:27 Wound Center Nurse 2 #1 left medial ankle -Time 12:02 10:39 10:29 -Correct Patient Yes Yes Yes -Correct Side, Site, Position Yes Yes Yes -Correct Procedure Yes Yes Yes -Procedure Performed Yes Yes Yes -Type of Procedure Debridement Debridement Debridement -Clinical Debridement Subcutaneous Subcutaneous Subcutaneous -Post Debridement Size (cm) - Length 1.9 1.4 1.5 -Post Debridement Size (cm) - Width 1.9 2.0 1.8 -Post Debridement Size (cm) - Depth 0.5 0.4 0.4 -Total Square Cm 3.61 2.80 2.70 -Wound/Ulcer Outcome Not Healed Not Healed Not Healed -Ulcer Cleansing Rinsed/ Rinsed/ Rinsed/ Irrigated with Irrigated with Irrigated with Saline Saline Saline -Foul Odor after Cleansing No No No -Bioengineered Tissue No No No -Bleeding Controlled with Pressure Pressure Pressure -Treatment Response Procedure Procedure Procedure Tolerated Well Tolerated Well Tolerated Well Pain Scale: 0-10 Numeric Is Patient Pain Free? Yes Yes Yes Wound debrided: Left lower extremity medial ankle Wound Grade/Stage: Stage II Type of Debridement: Excisional debridement Anesthesia Used: 4% Lidocaine Solution Depth: Down to and including healthy tissue, in the subcutaneous layer Percentage of wound debrided: 100 Instrument Used: 5mm curette Tissue Removed: Slough, Biofilm and devitalized tissue Severity: Fat Layer Exposed Amount of bleeding with debridement: Mild Bleeding Controlled with: Pressure Patient tolerated procedure well Assessment/Plan Active Problems Non-pressure chronic ulcer of left lower leg with fat layer exposed (Chronic) Assessment: Chronic non healing non pressure ulcer of left lower leg ( ankle ) Stage II. Left lower leg cellulitis. Hypertension. Plan: Stable wound. No significant progress in the past week. Still awaiting approval for Purapply. Completed course of Abx. Debridement done as documented above. Procedure was well tolerated. Switch dressing to Mary daily. Hopefully, switch to Purapply at next visit. Avoid idle standing. Elevate lower extremity when sitted. Follow up in 1 week. This note was generated with [employer] software. It may contain incorrect words, spelling, and punctuation that were not noted in checking the note before signing.
--- NOTE | 2017-12-01 13:30 | PN.PCM_ITS ---
(1) Cellulitis of left lower extremity Status: Chronic Current Visit: No Code(s): L03.116 - Cellulitis of left lower limb (2) Non-pressure chronic ulcer of left lower leg with fat layer exposed Status: Chronic Current Visit: Yes Code(s): L97.922 - Non-pressure chronic ulcer of unspecified part of left lower leg with fat layer exposed Type of Wound Date of Service: 12/01/17 Chief Complaint: Chronic Left lower extremity (ankle) ulcer. History of Wound: MS. Calle is a 62 year old with PMH of Hyperyension who was referred to the wound clinic due to a chronic non healing ulcer. Initially noticed in June 2017 as a small black blister. She denies any known precipitating factors.Blister was said to subsequently open up and then she started putting tripple antibiotic ointment on it. However, she states the she noted worsening of the wound after she started putting something she found in a First aid box at work. she is unsure of the name. She has also been putting essentail oil around the wound but denies putting it in the wound. Most recently, she has noted increased tenderness and redness of the the wound and area surrounding the wound. She attests to occassional discharge from the wound. She denies any known history of diabetes mellitus, arterial or venous insuficiency. she feels well otherwsie and denies chills, fever, nausea, vomitting or a change in her bowel habit. Progress of Wound: Stable. - Physical Exam Vital Signs Temp Pulse Resp BP 97.7 F L 110 H 18 159/83 H 12/01/17 09:55 12/01/17 09:55 12/01/17 09:55 12/01/17 09:55 General: Alert, Oriented x3, Cooperative, No apparent distress HEENT: Atraumatic, Normocephalic Oral: Moist Mucosa Neck: Supple Lungs: Normal air movement Cardiovascular: Regular rate Extremities: No cyanosis, Edema Skin: Ulcer/ Wound Wound Measurements and Assessment WC - Nurse 1 - General Ulcer Measurement Start: 11/17/17 11:12 Freq: Status: Active Protocol: Activity Type Activity Date Activity User E-Sign Co-Sign Detail Recorded Client Recorded Date Recorded By Document 12/01/17 09:55 DL [id number] 12/01/17 10:02 DL 12/01/17 09:55 Wound Center Nurse 1 [Ulcer Assessment] #1 left medial ankle -Current Size (cm) - Length 1.3 -Current Size (cm) - Width 1.6 -Current Size (cm) - Depth 0.5 -Total Square Cm 2.08 -Photo Taken No -Exudate Amt Medium (34-66%) -Exudate Type Serosanguineous -Wound Margin Thickened & Rolled Under -Granulation Amt Large (67-100%) -Granulation Quality Pale [place] -Necrosis Amt Small (1-33%) -Necrotic Tissue Type Adherent Slough -Structure Exposed N/A -Texture (Emma-wound Skin Appearance) Scarring -Moisture (Emma-wound Skin Appearance Maceration ) -Color (Emam-wound Skin Appearance) No Abnormality -Ulcer Cleansing Rinsed/ Irrigated with Saline -Anesthetic Used 4% Lidocaine Solution WC - Nurse 2 - General Ulcer CM Notes Start: 11/17/17 11:12 Freq: Status: Active Protocol: Activity Type Activity Date Activity User E-Sign Co-Sign Detail Recorded Client Recorded Date Recorded By Document 12/01/17 10:27 DV [id number] 12/01/17 10:32 DV 12/01/17 10:27 Wound Center Nurse 2 [Procedure/Treatment] -Time 10:29 -Correct Patient Yes -Correct Side, Site, Position Yes -Correct Procedure Yes -Procedure Performed Yes -Type of Procedure Debridement -Clinical Debridement Subcutaneous -Post Debridement Size (cm) - Length 1.5 -Post Debridement Size (cm) - Width 1.8 -Post Debridement Size (cm) - Depth 0.4 -Total Square Cm 2.70 -Wound/Ulcer Outcome Not Healed -Ulcer Cleansing Rinsed/ Irrigated with Saline -Foul Odor after Cleansing No -Bioengineered Tissue No -Bleeding Controlled with Pressure -Treatment Response Procedure Tolerated Well [See Physician Procedure note for Specifics] Pain Scale: 0-10 Numeric [Pain] -Is Patient Pain Free? Yes Musculoskeletal: No Muscle Wasting Neurological: Cranial nerves II-XII grossly intact Psych/Mental Status: Normal Affect Debridement Note Post-Debridement Measurements/Treatment WC - Nurse 2 - General Ulcer CM Notes Start: 11/17/17 11:12 Freq: Status: Active Protocol: Activity Type Activity Date Activity User E-Sign Co-Sign Detail Recorded Client Recorded Date Recorded By Document 11/17/17 12:02 DV [id number] 11/17/17 12:05 DV Document 11/24/17 10:38 DV [id number] 11/24/17 10:42 DV Document 12/01/17 10:27 DV [id number] 12/01/17 10:32 DV 11/17/17 11/24/17 12/01/17 12:02 10:38 10:27 Wound Center Nurse 2 #1 left medial ankle -Time 12:02 10:39 10:29 -Correct Patient Yes Yes Yes -Correct Side, Site, Position Yes Yes Yes -Correct Procedure Yes Yes Yes -Procedure Performed Yes Yes Yes -Type of Procedure Debridement Debridement Debridement -Clinical Debridement Subcutaneous Subcutaneous Subcutaneous -Post Debridement Size (cm) - Length 1.9 1.4 1.5 -Post Debridement Size (cm) - Width 1.9 2.0 1.8 -Post Debridement Size (cm) - Depth 0.5 0.4 0.4 -Total Square Cm 3.61 2.80 2.70 -Wound/Ulcer Outcome Not Healed Not Healed Not Healed -Ulcer Cleansing Rinsed/ Rinsed/ Rinsed/ Irrigated with Irrigated with Irrigated with Saline Saline Saline -Foul Odor after Cleansing No No No -Bioengineered Tissue No No No -Bleeding Controlled with Pressure Pressure Pressure -Treatment Response Procedure Procedure Procedure Tolerated Well Tolerated Well Tolerated Well Pain Scale: 0-10 Numeric Is Patient Pain Free? Yes Yes Yes Wound debrided: Left lower extremity medial ankle Wound Grade/Stage: Stage II Type of Debridement: Excisional debridement Anesthesia Used: 4% Lidocaine Solution Depth: Down to and including healthy tissue, in the subcutaneous layer Percentage of wound debrided: 100 Instrument Used: 5mm curette Tissue Removed: Slough, Biofilm and devitalized tissue Severity: Fat Layer Exposed Amount of bleeding with debridement: Mild Bleeding Controlled with: Pressure Patient tolerated procedure well Assessment/Plan Active Problems Non-pressure chronic ulcer of left lower leg with fat layer exposed (Chronic) Assessment: Chronic non healing non pressure ulcer of left lower leg ( ankle ) Stage II. Left lower leg cellulitis. Hypertension. Plan: Stable wound. No significant progress in the past week. Still awaiting approval for Purapply. Completed course of Abx. Debridement done as documented above. Procedure was well tolerated. Switch dressing to Mary daily. Hopefully , switch to Purapply at next visit. Avoid idle standing. Elevate lower extremity when sitted. Follow up in 1 week. This note was generated with [employer] software. It may contain incorrect words, spelling, and punctuation that were not noted in checking the note before signing.
[2017-12-08 10:58] VITALS: BP 169/102; PULSE 106; RESP 16; TEMP 36.6
--- NOTE | 2017-12-08 19:11 | PCM.WC.PN ---
(1) Cellulitis of left lower extremity Status: Chronic Current Visit: No Code(s): L03.116 - Cellulitis of left lower limb (2) Non-pressure chronic ulcer of left lower leg with fat layer exposed Status: Chronic Current Visit: Yes Code(s): L97.922 - Non-pressure chronic ulcer of unspecified part of left lower leg with fat layer exposed Type of Wound Date of Service: 12/08/17 Chief Complaint: Chronic Left lower extremity (ankle) ulcer. History of Wound: MS. Calle is a 62 year old with PMH of Hyperyension who was referred to the wound clinic due to a chronic non healing ulcer. Initially noticed in June 2017 as a small black blister. She denies any known precipitating factors.Blister was said to subsequently open up and then she started putting tripple antibiotic ointment on it. However, she states the she noted worsening of the wound after she started putting something she found in a First aid box at work. she is unsure of the name. She has also been putting essentail oil around the wound but denies putting it in the wound. Most recently, she has noted increased tenderness and redness of the the wound and area surrounding the wound. She attests to occassional discharge from the wound. She denies any known history of diabetes mellitus, arterial or venous insuficiency. she feels well otherwsie and denies chills, fever, nausea, vomitting or a change in her bowel habit. Progress of Wound: Improving. - Physical Exam Vital Signs Temp Pulse Resp BP 97.8 F 106 H 16 169/102 H 12/08/17 10:58 12/08/17 10:58 12/08/17 10:58 12/08/17 10:58 General: Alert, Oriented x3, Cooperative, No apparent distress HEENT: Atraumatic, Normocephalic Oral: Moist Mucosa Neck: Supple Lungs: Normal air movement Cardiovascular: Tachycardic Extremities: No clubbing, Edema Skin: Ulcer/ Wound Wound Measurements and Assessment WC - Nurse 1 - General Ulcer Measurement Start: 11/17/17 11:12 Freq: Status: Active Protocol: Activity Type Activity Date Activity User E-Sign Co-Sign Detail Recorded Client Recorded Date Recorded By Document 12/08/17 10:58 SUBHA [id number] 12/08/17 11:04 RB 12/08/17 10:58 Wound Center Nurse 1 [Ulcer Assessment] #1 left medial ankle -Combined with other wound No -Current Size (cm) - Length 1.2 -Current Size (cm) - Width 1.7 -Current Size (cm) - Depth 0.3 -Total Square Cm 2.04 -Date of Last Picture (Recall this 12/08/17 field) -Photo Taken Yes -Epithelialization None Present -Tunneling No -Undermining/Tunneling No -Exudate Amt Small (1-33%) -Exudate Type Serosanguineous -Wound Margin Distinct, Outline Attached -Granulation Amt Large (67-100%) -Granulation Quality Red -Slough/Fibrin No -Necrosis Amt Small (1-33%) -Necrotic Tissue Type Adherent Slough -Structure Exposed None/Limited to Skin Breakdown -Texture (Emma-wound Skin Appearance) Scarring -Moisture (Emma-wound Skin Appearance Assessed ) Dry/Scaly -Color (Emma-wound Skin Appearance) Assessed Erythema -Temperature (Emma-wound Skin No Abnormality Appearance) (Pt Warm) -Tenderness on Palpation (Emma-wound No Skin Appearance) -Ulcer Cleansing Rinsed/ Irrigated with Saline -Foul Odor after Cleansing No -Anesthetic Used 4% Lidocaine Solution [Edema Assessment] -Lower Limb Edema Present Yes -Left Calf (cm) 38.8 -Left Ankle (cm) 22.7 WC - Nurse 2 - General Ulcer CM Notes Start: 11/17/17 11:12 Freq: Status: Active Protocol: Activity Type Activity Date Activity User E-Sign Co-Sign Detail Recorded Client Recorded Date Recorded By Document 12/08/17 11:12 DV [id number] 12/08/17 11:13 DV 12/08/17 11:12 Wound Center Nurse 2 [Procedure/Treatment] #1 left medial ankle -Time 11:12 -Correct Patient Yes -Correct Side, Site, Position Yes -Correct Procedure Yes -Procedure Performed Yes -Type of Procedure Debridement -Clinical Debridement Subcutaneous -Post Debridement Size (cm) - Length 1.1 -Post Debridement Size (cm) - Width 1.4 -Post Debridement Size (cm) - Depth 0.3 -Total Square Cm 1.54 -Wound/Ulcer Outcome Not Healed -Ulcer Cleansing Rinsed/ Irrigated with Saline -Foul Odor after Cleansing No -Bioengineered Tissue No -Bleeding Controlled with Pressure -Treatment Response Procedure Tolerated Well [See Physician Procedure note for Specifics] Pain Scale: 0-10 Numeric [Pain] -Is Patient Pain Free? Yes Musculoskeletal: No Muscle Wasting Neurological: Cranial nerves II-XII grossly intact Psych/Mental Status: Normal Affect Debridement Note Post-Debridement Measurements/Treatment WC - Nurse 2 - General Ulcer CM Notes Start: 11/17/17 11:12 Freq: Status: Active Protocol: Activity Type Activity Date Activity User E-Sign Co-Sign Detail Recorded Client Recorded Date Recorded By Document 11/17/17 12:02 DV [id number] 11/17/17 12:05 DV Document 11/24/17 10:38 DV [id number] 11/24/17 10:42 DV Document 12/01/17 10:27 DV [id number] 12/01/17 10:32 DV Document 12/08/17 11:12 DV [id number] 12/08/17 11:13 DV 11/17/17 11/24/17 12/01/17 12:02 10:38 10:27 Wound Center Nurse 2 #1 left medial ankle -Time 12:02 10:39 10:29 -Correct Patient Yes Yes Yes -Correct Side, Site, Position Yes Yes Yes -Correct Procedure Yes Yes Yes -Procedure Performed Yes Yes Yes -Type of Procedure Debridement Debridement Debridement -Clinical Debridement Subcutaneous Subcutaneous Subcutaneous -Post Debridement Size (cm) - Length 1.9 1.4 1.5 -Post Debridement Size (cm) - Width 1.9 2.0 1.8 -Post Debridement Size (cm) - Depth 0.5 0.4 0.4 -Total Square Cm 3.61 2.80 2.70 -Wound/Ulcer Outcome Not Healed Not Healed Not Healed -Ulcer Cleansing Rinsed/ Rinsed/ Rinsed/ Irrigated with Irrigated with Irrigated with Saline Saline Saline -Foul Odor after Cleansing No No No -Bioengineered Tissue No No No -Bleeding Controlled with Pressure Pressure Pressure -Treatment Response Procedure Procedure Procedure Tolerated Well Tolerated Well Tolerated Well Pain Scale: 0-10 Numeric Is Patient Pain Free? Yes Yes Yes 12/08/17 11:12 Wound Center Nurse 2 #1 left medial ankle -Time 11:12 -Correct Patient Yes -Correct Side, Site, Position Yes -Correct Procedure Yes -Procedure Performed Yes -Type of Procedure Debridement -Clinical Debridement Subcutaneous -Post Debridement Size (cm) - Length 1.1 -Post Debridement Size (cm) - Width 1.4 -Post Debridement Size (cm) - Depth 0.3 -Total Square Cm 1.54 -Wound/Ulcer Outcome Not Healed -Ulcer Cleansing Rinsed/ Irrigated with Saline -Foul Odor after Cleansing No -Bioengineered Tissue No -Bleeding Controlled with Pressure -Treatment Response Procedure Tolerated Well Pain Scale: 0-10 Numeric Is Patient Pain Free? Yes Wound debrided: Left medial ankle Wound Grade/Stage: Stage II Type of Debridement: Excisional debridement Anesthesia Used: 4% Lidocaine Solution Depth: Down to and including healthy tissue, in the subcutaneous layer Percentage of wound debrided: 100 Instrument Used: 5mm curette Tissue Removed: Slough and devitalized tissue Severity: Fat Layer Exposed Amount of bleeding with debridement: Mild Bleeding Controlled with: Pressure Patient tolerated procedure well Assessment/Plan Active Problems Non-pressure chronic ulcer of left lower leg with fat layer exposed (Chronic) Assessment: Chronic non healing non pressure ulcer of left lower leg ( ankle ) Stage II. Left lower leg cellulitis. Hypertension. Plan: Wound has shown good progress. She is still not approved for purapply however has done very well with Mary and so will continue. Debridement done as documented above, procedure was well-tolerated. Continue Mary daily with Adaptic over top. Okay to return to work with appropriate covering of the wound/ulcer. Advised to avoid idle standing. Elevate lower extremity when sitted. Follow up in 2 weeks. This note was generated with [employer] dictation software. It may contain incorrect words, spelling, and punctuation that were not noted in checking the note before signing.
--- NOTE | 2017-12-08 19:16 | PN.PCM_ITS ---
(1) Cellulitis of left lower extremity Status: Chronic Current Visit: No Code(s): L03.116 - Cellulitis of left lower limb (2) Non-pressure chronic ulcer of left lower leg with fat layer exposed Status: Chronic Current Visit: Yes Code(s): L97.922 - Non-pressure chronic ulcer of unspecified part of left lower leg with fat layer exposed Type of Wound Date of Service: 12/08/17 Chief Complaint: Chronic Left lower extremity (ankle) ulcer. History of Wound: MS. Calel is a 62 year old with PMH of Hyperyension who was referred to the wound clinic due to a chronic non healing ulcer. Initially noticed in June 2017 as a small black blister. She denies any known precipitating factors.Blister was said to subsequently open up and then she started putting tripple antibiotic ointment on it. However, she states the she noted worsening of the wound after she started putting something she found in a First aid box at work. she is unsure of the name. She has also been putting essentail oil around the wound but denies putting it in the wound. Most recently, she has noted increased tenderness and redness of the the wound and area surrounding the wound. She attests to occassional discharge from the wound. She denies any known history of diabetes mellitus, arterial or venous insuficiency. she feels well otherwsie and denies chills, fever, nausea, vomitting or a change in her bowel habit. Progress of Wound: Improving. - Physical Exam Vital Signs Temp Pulse Resp BP 97.8 F 106 H 16 169/102 H 12/08/17 10:58 12/08/17 10:58 12/08/17 10:58 12/08/17 10:58 General: Alert, Oriented x3, Cooperative, No apparent distress HEENT: Atraumatic, Normocephalic Oral: Moist Mucosa Neck: Supple Lungs: Normal air movement Cardiovascular: Tachycardic Extremities: No clubbing, Edema Skin: Ulcer/ Wound Wound Measurements and Assessment WC - Nurse 1 - General Ulcer Measurement Start: 11/17/17 11:12 Freq: Status: Active Protocol: Activity Type Activity Date Activity User E-Sign Co-Sign Detail Recorded Client Recorded Date Recorded By Document 12/08/17 10:58 SUBHA [id number] 12/08/17 11:04 RB 12/08/17 10:58 Wound Center Nurse 1 [Ulcer Assessment] #1 left medial ankle -Combined with other wound No -Current Size (cm) - Length 1.2 -Current Size (cm) - Width 1.7 -Current Size (cm) - Depth 0.3 -Total Square Cm 2.04 -Date of Last Picture (Recall this 12/08/17 field) -Photo Taken Yes -Epithelialization None Present -Tunneling No -Undermining/Tunneling No -Exudate Amt Small (1-33%) -Exudate Type Serosanguineous -Wound Margin Distinct, Outline Attached -Granulation Amt Large (67-100%) -Granulation Quality Red -Slough/Fibrin No -Necrosis Amt Small (1-33%) -Necrotic Tissue Type Adherent Slough -Structure Exposed None/Limited to Skin Breakdown -Texture (Emma-wound Skin Appearance) Scarring -Moisture (Emma-wound Skin Appearance Assessed ) Dry/Scaly -Color (Emma-wound Skin Appearance) Assessed Erythema -Temperature (Emma-wound Skin No Abnormality Appearance) (Pt Warm) -Tenderness on Palpation (Emma-wound No Skin Appearance) -Ulcer Cleansing Rinsed/ Irrigated with Saline -Foul Odor after Cleansing No -Anesthetic Used 4% Lidocaine Solution [Edema Assessment] -Lower Limb Edema Present Yes -Left Calf (cm) 38.8 -Left Ankle (cm) 22.7 WC - Nurse 2 - General Ulcer CM Notes Start: 11/17/17 11:12 Freq: Status: Active Protocol: Activity Type Activity Date Activity User E-Sign Co-Sign Detail Recorded Client Recorded Date Recorded By Document 12/08/17 11:12 DV [id number] 12/08/17 11:13 DV 12/08/17 11:12 Wound Center Nurse 2 [Procedure/Treatment] #1 left medial ankle -Time 11:12 -Correct Patient Yes -Correct Side, Site, Position Yes -Correct Procedure Yes -Procedure Performed Yes -Type of Procedure Debridement -Clinical Debridement Subcutaneous -Post Debridement Size (cm) - Length 1.1 -Post Debridement Size (cm) - Width 1.4 -Post Debridement Size (cm) - Depth 0.3 -Total Square Cm 1.54 -Wound/Ulcer Outcome Not Healed -Ulcer Cleansing Rinsed/ Irrigated with Saline -Foul Odor after Cleansing No -Bioengineered Tissue No -Bleeding Controlled with Pressure -Treatment Response Procedure Tolerated Well [See Physician Procedure note for Specifics] Pain Scale: 0-10 Numeric [Pain] -Is Patient Pain Free? Yes Musculoskeletal: No Muscle Wasting Neurological: Cranial nerves II-XII grossly intact Psych/Mental Status: Normal Affect Debridement Note Post-Debridement Measurements/Treatment WC - Nurse 2 - General Ulcer CM Notes Start: 11/17/17 11:12 Freq: Status: Active Protocol: Activity Type Activity Date Activity User E-Sign Co-Sign Detail Recorded Client Recorded Date Recorded By Document 11/17/17 12:02 DV [id number] 11/17/17 12:05 DV Document 11/24/17 10:38 DV [id number] 11/24/17 10:42 DV Document 12/01/17 10:27 DV [id number] 12/01/17 10:32 DV Document 12/08/17 11:12 DV [id number] 12/08/17 11:13 DV 11/17/17 11/24/17 12/01/17 12:02 10:38 10:27 Wound Center Nurse 2 #1 left medial ankle -Time 12:02 10:39 10:29 -Correct Patient Yes Yes Yes -Correct Side, Site, Position Yes Yes Yes -Correct Procedure Yes Yes Yes -Procedure Performed Yes Yes Yes -Type of Procedure Debridement Debridement Debridement -Clinical Debridement Subcutaneous Subcutaneous Subcutaneous -Post Debridement Size (cm) - Length 1.9 1.4 1.5 -Post Debridement Size (cm) - Width 1.9 2.0 1.8 -Post Debridement Size (cm) - Depth 0.5 0.4 0.4 -Total Square Cm 3.61 2.80 2.70 -Wound/Ulcer Outcome Not Healed Not Healed Not Healed -Ulcer Cleansing Rinsed/ Rinsed/ Rinsed/ Irrigated with Irrigated with Irrigated with Saline Saline Saline -Foul Odor after Cleansing No No No -Bioengineered Tissue No No No -Bleeding Controlled with Pressure Pressure Pressure -Treatment Response Procedure Procedure Procedure Tolerated Well Tolerated Well Tolerated Well Pain Scale: 0-10 Numeric Is Patient Pain Free? Yes Yes Yes 12/08/17 11:12 Wound Center Nurse 2 #1 left medial ankle -Time 11:12 -Correct Patient Yes -Correct Side, Site, Position Yes -Correct Procedure Yes -Procedure Performed Yes -Type of Procedure Debridement -Clinical Debridement Subcutaneous -Post Debridement Size (cm) - Length 1.1 -Post Debridement Size (cm) - Width 1.4 -Post Debridement Size (cm) - Depth 0.3 -Total Square Cm 1.54 -Wound/Ulcer Outcome Not Healed -Ulcer Cleansing Rinsed/ Irrigated with Saline -Foul Odor after Cleansing No -Bioengineered Tissue No -Bleeding Controlled with Pressure -Treatment Response Procedure Tolerated Well Pain Scale: 0-10 Numeric Is Patient Pain Free? Yes Wound debrided: Left medial ankle Wound Grade/Stage: Stage II Type of Debridement: Excisional debridement Anesthesia Used: 4% Lidocaine Solution Depth: Down to and including healthy tissue, in the subcutaneous layer Percentage of wound debrided: 100 Instrument Used: 5mm curette Tissue Removed: Slough and devitalized tissue Severity: Fat Layer Exposed Amount of bleeding with debridement: Mild Bleeding Controlled with: Pressure Patient tolerated procedure well Assessment/Plan Active Problems Non-pressure chronic ulcer of left lower leg with fat layer exposed (Chronic) Assessment: Chronic non healing non pressure ulcer of left lower leg ( ankle ) Stage II. Left lower leg cellulitis. Hypertension. Plan: Wound has shown good progress. She is still not approved for purapply however has done very well with Mary and so will continue. Debridement done as documented above, procedure was well-tolerated. Continue Mary daily with Adaptic over top. Okay to return to work with appropriate covering of the wound /ulcer. Advised to avoid idle standing. Elevate lower extremity when sitted. Follow up in 2 weeks. This note was generated with [employer] dictation software. It may contain incorrect words, spelling, and punctuation that were not noted in checking the note before signing.
== END 2017-12-17 23:59 ==
LOC: WC 11:30
PROVIDERS: PCP Family Medicine; Visit Provider Internal Medicine
DX: L97.322 Non-pressure chronic ulcer of left ankle with fat layer exposed (principal); G35 Multiple sclerosis; L03.116 Cellulitis of left lower limb; I10 Essential (primary) hypertension; M79.89 Other specified soft tissue disorders; R09.89 Other specified symptoms and signs involving the circulatory and respiratory systems
CPT/HCPCS: 11042; 93923; 93970

== ENCOUNTER 2018-01-12 10:15 | Outpatient (RCR) | payer OTHER, SELFPAY ==
[2017-12-18 01:02] VITALS: PULSE 106; RESP 16; TEMP 36.6
[2017-12-22 12:45] VITALS: BP 166/95; PULSE 99; RESP 18; TEMP 36.6
--- NOTE | 2017-12-22 22:59 | PN.PCM_ITS ---
(1) Non-pressure chronic ulcer of left lower leg with fat layer exposed Status: Chronic Current Visit: Yes Code(s): L97.922 - Non-pressure chronic ulcer of unspecified part of left lower leg with fat layer exposed (2) Cellulitis of left lower extremity Status: Chronic Current Visit: No Code(s): L03.116 - Cellulitis of left lower limb (3) Hypertension Status: Chronic Current Visit: No Code(s): I10 - Essential (primary) hypertension Type of Wound Date of Service: 12/22/17 Chief Complaint: Chronic Left lower extremity (ankle) ulcer. History of Wound: MS. Calle is a 62 year old with PMH of Hyperyension who was referred to the wound clinic due to a chronic non healing ulcer. Initially noticed in June 2017 as a small black blister. She denies any known precipitating factors.Blister was said to subsequently open up and then she started putting tripple antibiotic ointment on it. However, she states the she noted worsening of the wound after she started putting something she found in a First aid box at work. she is unsure of the name. She has also been putting essentail oil around the wound but denies putting it in the wound. Most recently, she has noted increased tenderness and redness of the the wound and area surrounding the wound. She attests to occassional discharge from the wound. She denies any known history of diabetes mellitus, arterial or venous insuficiency. she feels well otherwsie and denies chills, fever, nausea, vomitting or a change in her bowel habit. Progress of Wound: Improving. - Physical Exam Vital Signs Temp Pulse Resp BP 97.8 F 99 18 166/95 H 12/22/17 12:45 12/22/17 12:45 12/22/17 12:45 12/22/17 12:45 General: Alert, Oriented x3, Cooperative, No apparent distress HEENT: Atraumatic, Normocephalic Oral: Moist Mucosa Neck: Supple Lungs: Normal air movement Cardiovascular: Regular rate Extremities: No clubbing, No cyanosis, Edema Skin: Ulcer/ Wound Wound Measurements and Assessment WC - Nurse 1 - General Ulcer Measurement Start: 12/22/17 11:07 Freq: Status: Active Protocol: Activity Type Activity Date Activity User E-Sign Co-Sign Detail Recorded Client Recorded Date Recorded By Document 12/22/17 12:45 TAYLOR [id number] 12/22/17 12:59 TAYLOR 12/22/17 12:45 Wound Center Nurse 1 [Ulcer Assessment] #1 left medial ankle -Combined with other wound No -Current Size (cm) - Length 0.9 -Current Size (cm) - Width 0.9 -Current Size (cm) - Depth 0.2 -Total Square Cm 0.81 -Date of Last Picture (Recall this 12/08/17 field) -Photo Taken No -Epithelialization Small 1-33% -Tunneling No -Undermining/Tunneling No -Circular Undermining No -Classification - Thickness Full Thickness with Exposed Support Structure -Exudate Amt Small (1-33%) -Exudate Type Serous -Wound Margin Distinct, Outline Attached -Granulation Amt Large (67-100%) -Granulation Quality Red -Slough/Fibrin Yes -Necrosis Amt None Present (0 %) -Necrotic Tissue Type Adherent Slough -Structure Exposed None/Limited to Skin Breakdown -Texture (Emma-wound Skin Appearance) No Abnormality -Moisture (Emma-wound Skin Appearance No Abnormality ) -Color (Emma-wound Skin Appearance) Hemosiderin Staining -Temperature (Emma-wound Skin No Abnormality Appearance) (Pt Warm) -Tenderness on Palpation (Emma-wound Yes Skin Appearance) -Ulcer Cleansing Rinsed/ Irrigated with Saline -Foul Odor after Cleansing No -Anesthetic Used 4% Lidocaine Solution [Edema Assessment] -Lower Limb Edema Present Yes -Left Calf (cm) 40.5 -Left Ankle (cm) 24.5 WC - Nurse 2 - General Ulcer CM Notes Start: 12/22/17 11:07 Freq: Status: Active Protocol: Activity Type Activity Date Activity User E-Sign Co-Sign Detail Recorded Client Recorded Date Recorded By Document 12/22/17 13:14 DV [id number] 12/22/17 13:18 DV 12/22/17 13:14 Wound Center Nurse 2 [Procedure/Treatment] #1 left medial ankle -Time 13:17 -Correct Patient Yes -Correct Side, Site, Position Yes -Correct Procedure Yes -Procedure Performed Yes -Type of Procedure Debridement -Clinical Debridement Subcutaneous -Post Debridement Size (cm) - Length 0.8 -Post Debridement Size (cm) - Width 0.7 -Post Debridement Size (cm) - Depth 0.2 -Total Square Cm 0.56 -Wound/Ulcer Outcome Not Healed -Ulcer Cleansing Rinsed/ Irrigated with Saline -Foul Odor after Cleansing No -Bioengineered Tissue No -Bleeding Controlled with Pressure -Treatment Response Procedure Tolerated Well [See Physician Procedure note for Specifics] Pain Scale: 0-10 Numeric [Pain] -Is Patient Pain Free? Yes Musculoskeletal: No Muscle Wasting Neurological: Cranial nerves II-XII grossly intact Psych/Mental Status: Normal Affect Debridement Note Post-Debridement Measurements/Treatment WC - Nurse 2 - General Ulcer CM Notes Start: 12/22/17 11:07 Freq: Status: Active Protocol: Activity Type Activity Date Activity User E-Sign Co-Sign Detail Recorded Client Recorded Date Recorded By Document 12/22/17 13:14 DV [id number] 12/22/17 13:18 DV 12/22/17 13:14 Wound Center Nurse 2 #1 left medial ankle -Time 13:17 -Correct Patient Yes -Correct Side, Site, Position Yes -Correct Procedure Yes -Procedure Performed Yes -Type of Procedure Debridement -Clinical Debridement Subcutaneous -Post Debridement Size (cm) - Length 0.8 -Post Debridement Size (cm) - Width 0.7 -Post Debridement Size (cm) - Depth 0.2 -Total Square Cm 0.56 -Wound/Ulcer Outcome Not Healed -Ulcer Cleansing Rinsed/ Irrigated with Saline -Foul Odor after Cleansing No -Bioengineered Tissue No -Bleeding Controlled with Pressure -Treatment Response Procedure Tolerated Well Pain Scale: 0-10 Numeric Is Patient Pain Free? Yes Wound debrided: Left Medial Ankle Ulcer Wound Grade/Stage: Stage II Type of Debridement: Excisional debridement Anesthesia Used: 4% Lidocaine Solution Depth: Down to and including healthy tissue, in the subcutaneous layer Percentage of wound debrided: 100 Instrument Used: 3mm curette Tissue Removed: Slough and Devitalized tissue Severity: Fat Layer Exposed Amount of bleeding with debridement: Mild Bleeding Controlled with: Pressure Patient tolerated procedure well Assessment/Plan Active Problems Non-pressure chronic ulcer of left lower leg with fat layer exposed (Chronic) Assessment: Chronic non healing non pressure ulcer of left lower leg ( ankle ) Stage II. Left lower leg cellulitis. Hypertension. Plan: Wound continues to show good progress. Debridement done as documented above, procedure was well-tolerated. Continue Mary daily with Adaptic over top. Okay to return to work with appropriate covering of the wound/ulcer. Advised to avoid idle standing. Elevate lower extremity when sitted. Follow up in 2 weeks. This note was generated with [employer] dictation software. It may contain incorrect words, spelling, and punctuation that were not noted in checking the note before signing.
[2018-01-05 12:26] VITALS: BP 161/97; PULSE 100; RESP 16; TEMP 36.9
--- NOTE | 2018-01-05 18:36 | PCM.WC.PN ---
(1) Non-pressure chronic ulcer of left lower leg with fat layer exposed Status: Chronic Current Visit: Yes Code(s): L97.922 - Non-pressure chronic ulcer of unspecified part of left lower leg with fat layer exposed (2) Cellulitis of left lower extremity Status: Chronic Current Visit: No Code(s): L03.116 - Cellulitis of left lower limb (3) Hypertension Status: Chronic Current Visit: No Code(s): I10 - Essential (primary) hypertension Type of Wound Date of Service: 01/05/18 Chief Complaint: Chronic Left lower extremity (ankle) ulcer. History of Wound: MS. Calle is a 62 year old with PMH of Hyperyension who was referred to the wound clinic due to a chronic non healing ulcer. Initially noticed in June 2017 as a small black blister. She denies any known precipitating factors.Blister was said to subsequently open up and then she started putting tripple antibiotic ointment on it. However, she states the she noted worsening of the wound after she started putting something she found in a First aid box at work. she is unsure of the name. She has also been putting essentail oil around the wound but denies putting it in the wound. Most recently, she has noted increased tenderness and redness of the the wound and area surrounding the wound. She attests to occassional discharge from the wound. She denies any known history of diabetes mellitus, arterial or venous insuficiency. she feels well otherwsie and denies chills, fever, nausea, vomitting or a change in her bowel habit. Progress of Wound: Improving. - Physical Exam Vital Signs Temp Pulse Resp BP 98.4 F 100 16 161/97 H 01/05/18 12:26 01/05/18 12:26 01/05/18 12:26 01/05/18 12:26 General: Alert, Oriented x3, Cooperative, No apparent distress HEENT: Atraumatic, Normocephalic Oral: Moist Mucosa Neck: Supple Lungs: Normal air movement Cardiovascular: Regular rate Extremities: No cyanosis, Edema Skin: Ulcer/ Wound Wound Measurements and Assessment WC - Nurse 1 - General Ulcer Measurement Start: 12/22/17 11:07 Freq: Status: Active Protocol: Activity Type Activity Date Activity User E-Sign Co-Sign Detail Recorded Client Recorded Date Recorded By Document 01/05/18 12:26 [facility] [id number] 01/05/18 12:33 [facility] 01/05/18 12:26 Wound Center Nurse 1 [Ulcer Assessment] #1 left medial ankle -Combined with other wound No -Current Size (cm) - Length 0.1 -Current Size (cm) - Width 0.1 -Current Size (cm) - Depth 0.1 -Total Square Cm 0.01 -Photo Taken No -Epithelialization Large 67-100% -Tunneling No -Undermining/Tunneling No -Circular Undermining No -Exudate Amt Small (1-33%) -Exudate Type Serous -Wound Margin Distinct, Outline Attached -Granulation Amt Large (67-100%) -Granulation Quality Red -Slough/Fibrin No -Necrosis Amt None Present (0 %) -Structure Exposed None/Limited to Skin Breakdown -Texture (Emma-wound Skin Appearance) Scarring -Moisture (Emma-wound Skin Appearance No Abnormality ) Assessed -Color (Emma-wound Skin Appearance) No Abnormality Assessed -Temperature (Emma-wound Skin No Abnormality Appearance) (Pt Warm) -Tenderness on Palpation (Emma-wound No Skin Appearance) -Ulcer Cleansing Rinsed/ Irrigated with Saline -Foul Odor after Cleansing No -Anesthetic Used 5% Lidocaine Gel [Edema Assessment] -Lower Limb Edema Present Yes -Left Calf (cm) 39 -Left Ankle (cm) 23 WC - Nurse 2 - General Ulcer CM Notes Start: 12/22/17 11:07 Freq: Status: Active Protocol: Activity Type Activity Date Activity User E-Sign Co-Sign Detail Recorded Client Recorded Date Recorded By Document 01/05/18 12:55 [id number] 01/05/18 12:56 01/05/18 12:55 Wound Center Nurse 2 [Procedure/Treatment] #1 left medial ankle -Time 12:55 -Correct Patient Yes -Correct Side, Site, Position Yes -Correct Procedure Yes -Procedure Performed Yes -Type of Procedure Debridement -Clinical Debridement Subcutaneous -Post Debridement Size (cm) - Length 0.3 -Post Debridement Size (cm) - Width 0.6 -Post Debridement Size (cm) - Depth 0.1 -Total Square Cm 0.18 -Wound/Ulcer Outcome Not Healed -Ulcer Cleansing Rinsed/ Irrigated with Saline -Foul Odor after Cleansing No -Bioengineered Tissue No -Bleeding Controlled with Pressure -Treatment Response Procedure Tolerated Well [See Physician Procedure note for Specifics] Musculoskeletal: No Muscle Wasting Neurological: Cranial nerves II-XII grossly intact Psych/Mental Status: Normal Affect Debridement Note Post-Debridement Measurements/Treatment WC - Nurse 2 - General Ulcer CM Notes Start: 12/22/17 11:07 Freq: Status: Active Protocol: Activity Type Activity Date Activity User E-Sign Co-Sign Detail Recorded Client Recorded Date Recorded By Document 12/22/17 13:14 DV [id number] 12/22/17 13:18 DV Document 01/05/18 12:55 DV [id number] 01/05/18 12:56 DV 12/22/17 01/05/18 13:14 12:55 Wound Center Nurse 2 #1 left medial ankle -Time 13:17 12:55 -Correct Patient Yes Yes -Correct Side, Site, Position Yes Yes -Correct Procedure Yes Yes -Procedure Performed Yes Yes -Type of Procedure Debridement Debridement -Clinical Debridement Subcutaneous Subcutaneous -Post Debridement Size (cm) - Length 0.8 0.3 -Post Debridement Size (cm) - Width 0.7 0.6 -Post Debridement Size (cm) - Depth 0.2 0.1 -Total Square Cm 0.56 0.18 -Wound/Ulcer Outcome Not Healed Not Healed -Ulcer Cleansing Rinsed/ Rinsed/ Irrigated with Irrigated with Saline Saline -Foul Odor after Cleansing No No -Bioengineered Tissue No No -Bleeding Controlled with Pressure Pressure -Treatment Response Procedure Procedure Tolerated Well Tolerated Well Pain Scale: 0-10 Numeric Is Patient Pain Free? Yes Wound debrided: left medial ankle ulcer Wound Grade/Stage: Stage II Type of Debridement: Excisional debridement Anesthesia Used: 5% Lidocaine Gel Depth: Down to and including healthy tissue, in the subcutaneous layer Percentage of wound debrided: 100 Instrument Used: 3mm curette Tissue Removed: Biofilm and devitalized tissue Severity: Limited To Skin Breakdown Amount of bleeding with debridement: Mild Bleeding Controlled with: Compression and gauze Patient tolerated procedure well Assessment/Plan Active Problems Non-pressure chronic ulcer of left lower leg with fat layer exposed (Chronic) Assessment: Chronic non healing non pressure ulcer of left lower leg ( ankle ) Stage II. Left lower leg cellulitis. Hypertension. Plan: Wound continues to show very good progress. Anticipate complete healing within the next week. Debridement done as documented above, procedure was well-tolerated. Continue Mary daily with Adaptic over top. Avoid idle standing. Elevate lower extremity when sitted. Follow up in 1 week. This note was generated with [employer] dictation software. It may contain incorrect words, spelling, and punctuation that were not noted in checking the note before signing.
--- NOTE | 2018-01-05 18:39 | PN.PCM_ITS ---
(1) Non-pressure chronic ulcer of left lower leg with fat layer exposed Status: Chronic Current Visit: Yes Code(s): L97.922 - Non-pressure chronic ulcer of unspecified part of left lower leg with fat layer exposed (2) Cellulitis of left lower extremity Status: Chronic Current Visit: No Code(s): L03.116 - Cellulitis of left lower limb (3) Hypertension Status: Chronic Current Visit: No Code(s): I10 - Essential (primary) hypertension Type of Wound Date of Service: 01/05/18 Chief Complaint: Chronic Left lower extremity (ankle) ulcer. History of Wound: MS. Calle is a 62 year old with PMH of Hyperyension who was referred to the wound clinic due to a chronic non healing ulcer. Initially noticed in June 2017 as a small black blister. She denies any known precipitating factors.Blister was said to subsequently open up and then she started putting tripple antibiotic ointment on it. However, she states the she noted worsening of the wound after she started putting something she found in a First aid box at work. she is unsure of the name. She has also been putting essentail oil around the wound but denies putting it in the wound. Most recently, she has noted increased tenderness and redness of the the wound and area surrounding the wound. She attests to occassional discharge from the wound. She denies any known history of diabetes mellitus, arterial or venous insuficiency. she feels well otherwsie and denies chills, fever, nausea, vomitting or a change in her bowel habit. Progress of Wound: Improving. - Physical Exam Vital Signs Temp Pulse Resp BP 98.4 F 100 16 161/97 H 01/05/18 12:26 01/05/18 12:26 01/05/18 12:26 01/05/18 12:26 General: Alert, Oriented x3, Cooperative, No apparent distress HEENT: Atraumatic, Normocephalic Oral: Moist Mucosa Neck: Supple Lungs: Normal air movement Cardiovascular: Regular rate Extremities: No cyanosis, Edema Skin: Ulcer/ Wound Wound Measurements and Assessment WC - Nurse 1 - General Ulcer Measurement Start: 12/22/17 11:07 Freq: Status: Active Protocol: Activity Type Activity Date Activity User E-Sign Co-Sign Detail Recorded Client Recorded Date Recorded By Document 01/05/18 12:26 [facility] [id number] 01/05/18 12:33 [facility] 01/05/18 12:26 Wound Center Nurse 1 [Ulcer Assessment] #1 left medial ankle -Combined with other wound No -Current Size (cm) - Length 0.1 -Current Size (cm) - Width 0.1 -Current Size (cm) - Depth 0.1 -Total Square Cm 0.01 -Photo Taken No -Epithelialization Large 67-100% -Tunneling No -Undermining/Tunneling No -Circular Undermining No -Exudate Amt Small (1-33%) -Exudate Type Serous -Wound Margin Distinct, Outline Attached -Granulation Amt Large (67-100%) -Granulation Quality Red -Slough/Fibrin No -Necrosis Amt None Present (0 %) -Structure Exposed None/Limited to Skin Breakdown -Texture (Emma-wound Skin Appearance) Scarring -Moisture (Emma-wound Skin Appearance No Abnormality ) Assessed -Color (Emma-wound Skin Appearance) No Abnormality Assessed -Temperature (Emma-wound Skin No Abnormality Appearance) (Pt Warm) -Tenderness on Palpation (Emma-wound No Skin Appearance) -Ulcer Cleansing Rinsed/ Irrigated with Saline -Foul Odor after Cleansing No -Anesthetic Used 5% Lidocaine Gel [Edema Assessment] -Lower Limb Edema Present Yes -Left Calf (cm) 39 -Left Ankle (cm) 23 WC - Nurse 2 - General Ulcer CM Notes Start: 12/22/17 11:07 Freq: Status: Active Protocol: Activity Type Activity Date Activity User E-Sign Co-Sign Detail Recorded Client Recorded Date Recorded By Document 01/05/18 12:55 [email or web address] 01/05/18 12:56 01/05/18 12:55 Wound Center Nurse 2 [Procedure/Treatment] #1 left medial ankle -Time 12:55 -Correct Patient Yes -Correct Side, Site, Position Yes -Correct Procedure Yes -Procedure Performed Yes -Type of Procedure Debridement -Clinical Debridement Subcutaneous -Post Debridement Size (cm) - Length 0.3 -Post Debridement Size (cm) - Width 0.6 -Post Debridement Size (cm) - Depth 0.1 -Total Square Cm 0.18 -Wound/Ulcer Outcome Not Healed -Ulcer Cleansing Rinsed/ Irrigated with Saline -Foul Odor after Cleansing No -Bioengineered Tissue No -Bleeding Controlled with Pressure -Treatment Response Procedure Tolerated Well [See Physician Procedure note for Specifics] Musculoskeletal: No Muscle Wasting Neurological: Cranial nerves II-XII grossly intact Psych/Mental Status: Normal Affect Debridement Note Post-Debridement Measurements/Treatment WC - Nurse 2 - General Ulcer CM Notes Start: 12/22/17 11:07 Freq: Status: Active Protocol: Activity Type Activity Date Activity User E-Sign Co-Sign Detail Recorded Client Recorded Date Recorded By Document 12/22/17 13:14 DV [id number] 12/22/17 13:18 DV Document 01/05/18 12:55 DV [id number] 01/05/18 12:56 DV 12/22/17 01/05/18 13:14 12:55 Wound Center Nurse 2 #1 left medial ankle -Time 13:17 12:55 -Correct Patient Yes Yes -Correct Side, Site, Position Yes Yes -Correct Procedure Yes Yes -Procedure Performed Yes Yes -Type of Procedure Debridement Debridement -Clinical Debridement Subcutaneous Subcutaneous -Post Debridement Size (cm) - Length 0.8 0.3 -Post Debridement Size (cm) - Width 0.7 0.6 -Post Debridement Size (cm) - Depth 0.2 0.1 -Total Square Cm 0.56 0.18 -Wound/Ulcer Outcome Not Healed Not Healed -Ulcer Cleansing Rinsed/ Rinsed/ Irrigated with Irrigated with Saline Saline -Foul Odor after Cleansing No No -Bioengineered Tissue No No -Bleeding Controlled with Pressure Pressure -Treatment Response Procedure Procedure Tolerated Well Tolerated Well Pain Scale: 0-10 Numeric Is Patient Pain Free? Yes Wound debrided: left medial ankle ulcer Wound Grade/Stage: Stage II Type of Debridement: Excisional debridement Anesthesia Used: 5% Lidocaine Gel Depth: Down to and including healthy tissue, in the subcutaneous layer Percentage of wound debrided: 100 Instrument Used: 3mm curette Tissue Removed: Biofilm and devitalized tissue Severity: Limited To Skin Breakdown Amount of bleeding with debridement: Mild Bleeding Controlled with: Compression and gauze Patient tolerated procedure well Assessment/Plan Active Problems Non-pressure chronic ulcer of left lower leg with fat layer exposed (Chronic) Assessment: Chronic non healing non pressure ulcer of left lower leg ( ankle ) Stage II. Left lower leg cellulitis. Hypertension. Plan: Wound continues to show very good progress. Anticipate complete healing within the next week. Debridement done as documented above, procedure was well- tolerated. Continue Mary daily with Adaptic over top. Avoid idle standing. Elevate lower extremity when sitted. Follow up in 1 week. This note was generated with [employer] dictation software. It may contain incorrect words, spelling, and punctuation that were not noted in checking the note before signing.
[2018-01-12 10:52] VITALS: BP 166/90; PULSE 98; RESP 18; TEMP 36.2
--- NOTE | 2018-01-12 17:06 | PCM.WC.PN ---
(1) Non-pressure chronic ulcer of left lower leg with fat layer exposed Status: Chronic Current Visit: Yes Code(s): L97.922 - Non-pressure chronic ulcer of unspecified part of left lower leg with fat layer exposed (2) Cellulitis of left lower extremity Status: Chronic Current Visit: No Code(s): L03.116 - Cellulitis of left lower limb (3) Hypertension Status: Chronic Current Visit: No Code(s): I10 - Essential (primary) hypertension Type of Wound Date of Service: 01/12/18 Chief Complaint: Chronic Left lower extremity (ankle) ulcer. History of Wound: MS. Calle is a 62 year old with PMH of Hyperyension who was referred to the wound clinic due to a chronic non healing ulcer. Initially noticed in June 2017 as a small black blister. She denies any known precipitating factors.Blister was said to subsequently open up and then she started putting tripple antibiotic ointment on it. However, she states the she noted worsening of the wound after she started putting something she found in a First aid box at work. she is unsure of the name. She has also been putting essentail oil around the wound but denies putting it in the wound. Most recently, she has noted increased tenderness and redness of the the wound and area surrounding the wound. She attests to occassional discharge from the wound. She denies any known history of diabetes mellitus, arterial or venous insuficiency. she feels well otherwsie and denies chills, fever, nausea, vomitting or a change in her bowel habit. Progress of Wound: Healed. - Physical Exam Vital Signs Temp Pulse Resp BP 97.1 F L 98 18 166/90 H 01/12/18 10:52 01/12/18 10:52 01/12/18 10:52 01/12/18 10:52 General: Alert, Oriented x3, Cooperative, No apparent distress HEENT: Atraumatic, Normocephalic Oral: Moist Mucosa Neck: Supple Lungs: Normal air movement Cardiovascular: Regular rate Abdomen: Soft, Non Tender Extremities: No cyanosis, Edema Wound Measurements and Assessment WC - Nurse 1 - General Ulcer Measurement Start: 12/22/17 11:07 Freq: Status: Active Protocol: Activity Type Activity Date Activity User E-Sign Co-Sign Detail Recorded Client Recorded Date Recorded By Document 01/12/18 10:52 RB [id number] 01/12/18 11:03 RB 01/12/18 10:52 Wound Center Nurse 1 [Ulcer Assessment] #1 left medial ankle -Combined with other wound No -Current Size (cm) - Length 0.7 -Current Size (cm) - Width 0.5 -Current Size (cm) - Depth 0.1 -Total Square Cm 0.35 -Photo Taken No -Epithelialization Small 1-33% -Tunneling No -Undermining/Tunneling No -Circular Undermining No -Classification - Thickness Full Thickness with Exposed Support Structure -Exudate Amt Small (1-33%) -Exudate Type Serosanguineous -Wound Margin Distinct, Outline Attached -Granulation Amt Medium (34-66%) -Granulation Quality [place] Red -Slough/Fibrin Yes -Necrosis Amt Small (1-33%) -Necrotic Tissue Type Adherent Slough -Structure Exposed N/A -Texture (Emma-wound Skin Appearance) Assessed Excoriation -Moisture (Emma-wound Skin Appearance Assessed ) -Color (Emma-wound Skin Appearance) Assessed Erythema -Temperature (Emma-wound Skin No Abnormality Appearance) (Pt Warm) -Tenderness on Palpation (Emam-wound No Skin Appearance) -Ulcer Cleansing Rinsed/ Irrigated with Saline -Foul Odor after Cleansing No -Anesthetic Used 5% Lidocaine Gel [Edema Assessment] -Lower Limb Edema Present Yes -Left Calf (cm) 38.5 -Left Ankle (cm) 23.5 WC - Nurse 2 - General Ulcer CM Notes Start: 12/22/17 11:07 Freq: Status: Active Protocol: Activity Type Activity Date Activity User E-Sign Co-Sign Detail Recorded Client Recorded Date Recorded By Document 01/12/18 11:44 DV [id number] 01/12/18 11:45 DV 01/12/18 11:44 Wound Center Nurse 2 [Procedure/Treatment] #1 left medial ankle -Time 11:45 -Correct Patient Yes -Procedure Performed No -Post Debridement Size (cm) - Length 0 -Post Debridement Size (cm) - Width 0 -Post Debridement Size (cm) - Depth 0 -Total Square Cm 0 -Wound/Ulcer Outcome Healed- Epithelialized [See Physician Procedure note for Specifics] Pain Scale: 0-10 Numeric [Pain] -Is Patient Pain Free? Yes Musculoskeletal: No Muscle Wasting Neurological: Cranial nerves II-XII grossly intact Psych/Mental Status: Normal Affect Debridement Note Post-Debridement Measurements/Treatment WC - Nurse 2 - General Ulcer CM Notes Start: 12/22/17 11:07 Freq: Status: Active Protocol: Activity Type Activity Date Activity User E-Sign Co-Sign Detail Recorded Client Recorded Date Recorded By Document 12/22/17 13:14 DV [id number] 12/22/17 13:18 DV Document 01/05/18 12:55 DV [id number] 01/05/18 12:56 DV Document 01/12/18 11:44 DV [id number] 01/12/18 11:45 DV 12/22/17 01/05/18 01/12/18 13:14 12:55 11:44 Wound Center Nurse 2 #1 left medial ankle -Time 13:17 12:55 11:45 -Correct Patient Yes Yes Yes -Correct Side, Site, Position Yes Yes -Correct Procedure Yes Yes -Procedure Performed Yes Yes No -Type of Procedure Debridement Debridement -Clinical Debridement Subcutaneous Subcutaneous -Post Debridement Size (cm) - Length 0.8 0.3 0 -Post Debridement Size (cm) - Width 0.7 0.6 0 -Post Debridement Size (cm) - Depth 0.2 0.1 0 -Total Square Cm 0.56 0.18 0 -Wound/Ulcer Outcome Not Healed Not Healed Healed- Epithelialized -Ulcer Cleansing Rinsed/ Rinsed/ Irrigated with Irrigated with Saline Saline -Foul Odor after Cleansing No No -Bioengineered Tissue No No -Bleeding Controlled with Pressure Pressure -Treatment Response Procedure Procedure Tolerated Well Tolerated Well Pain Scale: 0-10 Numeric Is Patient Pain Free? Yes Yes No debridement was completed today Assessment/Plan Active Problems Non-pressure chronic ulcer of left lower leg with fat layer exposed (Chronic) Assessment: Chronic non healing non pressure ulcer of left lower leg ( ankle ) Stage II. Left lower leg cellulitis. Hypertension. Plan: Wound has healed. Minimal area of erythema noted around the periwound area. Patient does state that she used a tape she developed an allergic reaction to. Adaptic to the area for the next 2 weeks. Patient advised to keep the area well covered especially when she has to be at work. Moisturize skin adequately. Edema management. Avoid idle standing. Elevate lower extremity when sitted. Discharged from the wound clinic. This note was generated with Dragon dictation software. It may contain incorrect words, spelling, and punctuation that were not noted in checking the note before signing.
--- NOTE | 2018-01-12 17:09 | PN.PCM_ITS ---
(1) Non-pressure chronic ulcer of left lower leg with fat layer exposed Status: Chronic Current Visit: Yes Code(s): L97.922 - Non-pressure chronic ulcer of unspecified part of left lower leg with fat layer exposed (2) Cellulitis of left lower extremity Status: Chronic Current Visit: No Code(s): L03.116 - Cellulitis of left lower limb (3) Hypertension Status: Chronic Current Visit: No Code(s): I10 - Essential (primary) hypertension Type of Wound Date of Service: 01/12/18 Chief Complaint: Chronic Left lower extremity (ankle) ulcer. History of Wound: MS. Calle is a 62 year old with PMH of Hyperyension who was referred to the wound clinic due to a chronic non healing ulcer. Initially noticed in June 2017 as a small black blister. She denies any known precipitating factors.Blister was said to subsequently open up and then she started putting tripple antibiotic ointment on it. However, she states the she noted worsening of the wound after she started putting something she found in a First aid box at work. she is unsure of the name. She has also been putting essentail oil around the wound but denies putting it in the wound. Most recently, she has noted increased tenderness and redness of the the wound and area surrounding the wound. She attests to occassional discharge from the wound. She denies any known history of diabetes mellitus, arterial or venous insuficiency. she feels well otherwsie and denies chills, fever, nausea, vomitting or a change in her bowel habit. Progress of Wound: Healed. - Physical Exam Vital Signs Temp Pulse Resp BP 97.1 F L 98 18 166/90 H 01/12/18 10:52 01/12/18 10:52 01/12/18 10:52 01/12/18 10:52 General: Alert, Oriented x3, Cooperative, No apparent distress HEENT: Atraumatic, Normocephalic Oral: Moist Mucosa Neck: Supple Lungs: Normal air movement Cardiovascular: Regular rate Abdomen: Soft, Non Tender Extremities: No cyanosis, Edema Wound Measurements and Assessment WC - Nurse 1 - General Ulcer Measurement Start: 12/22/17 11:07 Freq: Status: Active Protocol: Activity Type Activity Date Activity User E-Sign Co-Sign Detail Recorded Client Recorded Date Recorded By Document 01/12/18 10:52 RB [id number] 01/12/18 11:03 RB 01/12/18 10:52 Wound Center Nurse 1 [Ulcer Assessment] #1 left medial ankle -Combined with other wound No -Current Size (cm) - Length 0.7 -Current Size (cm) - Width 0.5 -Current Size (cm) - Depth 0.1 -Total Square Cm 0.35 -Photo Taken No -Epithelialization Small 1-33% -Tunneling No -Undermining/Tunneling No -Circular Undermining No -Classification - Thickness Full Thickness with Exposed Support Structure -Exudate Amt Small (1-33%) -Exudate Type Serosanguineous -Wound Margin Distinct, Outline Attached -Granulation Amt Medium (34-66%) -Granulation Quality [place] Red -Slough/Fibrin Yes -Necrosis Amt Small (1-33%) -Necrotic Tissue Type Adherent Slough -Structure Exposed N/A -Texture (Emma-wound Skin Appearance) Assessed Excoriation -Moisture (Emma-wound Skin Appearance Assessed ) -Color (Emma-wound Skin Appearance) Assessed Erythema -Temperature (Emma-wound Skin No Abnormality Appearance) (Pt Warm) -Tenderness on Palpation (Emma-wound No Skin Appearance) -Ulcer Cleansing Rinsed/ Irrigated with Saline -Foul Odor after Cleansing No -Anesthetic Used 5% Lidocaine Gel [Edema Assessment] -Lower Limb Edema Present Yes -Left Calf (cm) 38.5 -Left Ankle (cm) 23.5 WC - Nurse 2 - General Ulcer CM Notes Start: 12/22/17 11:07 Freq: Status: Active Protocol: Activity Type Activity Date Activity User E-Sign Co-Sign Detail Recorded Client Recorded Date Recorded By Document 01/12/18 11:44 DV [id number] 01/12/18 11:45 DV 01/12/18 11:44 Wound Center Nurse 2 [Procedure/Treatment] #1 left medial ankle -Time 11:45 -Correct Patient Yes -Procedure Performed No -Post Debridement Size (cm) - Length 0 -Post Debridement Size (cm) - Width 0 -Post Debridement Size (cm) - Depth 0 -Total Square Cm 0 -Wound/Ulcer Outcome Healed- Epithelialized [See Physician Procedure note for Specifics] Pain Scale: 0-10 Numeric [Pain] -Is Patient Pain Free? Yes Musculoskeletal: No Muscle Wasting Neurological: Cranial nerves II-XII grossly intact Psych/Mental Status: Normal Affect Debridement Note Post-Debridement Measurements/Treatment WC - Nurse 2 - General Ulcer CM Notes Start: 12/22/17 11:07 Freq: Status: Active Protocol: Activity Type Activity Date Activity User E-Sign Co-Sign Detail Recorded Client Recorded Date Recorded By Document 12/22/17 13:14 DV [id number] 12/22/17 13:18 DV Document 01/05/18 12:55 DV [id number] 01/05/18 12:56 DV Document 01/12/18 11:44 DV [id number] 01/12/18 11:45 DV 12/22/17 01/05/18 01/12/18 13:14 12:55 11:44 Wound Center Nurse 2 #1 left medial ankle -Time 13:17 12:55 11:45 -Correct Patient Yes Yes Yes -Correct Side, Site, Position Yes Yes -Correct Procedure Yes Yes -Procedure Performed Yes Yes No -Type of Procedure Debridement Debridement -Clinical Debridement Subcutaneous Subcutaneous -Post Debridement Size (cm) - Length 0.8 0.3 0 -Post Debridement Size (cm) - Width 0.7 0.6 0 -Post Debridement Size (cm) - Depth 0.2 0.1 0 -Total Square Cm 0.56 0.18 0 -Wound/Ulcer Outcome Not Healed Not Healed Healed- Epithelialized -Ulcer Cleansing Rinsed/ Rinsed/ Irrigated with Irrigated with Saline Saline -Foul Odor after Cleansing No No -Bioengineered Tissue No No -Bleeding Controlled with Pressure Pressure -Treatment Response Procedure Procedure Tolerated Well Tolerated Well Pain Scale: 0-10 Numeric Is Patient Pain Free? Yes Yes No debridement was completed today Assessment/Plan Active Problems Non-pressure chronic ulcer of left lower leg with fat layer exposed (Chronic) Assessment: Chronic non healing non pressure ulcer of left lower leg ( ankle ) Stage II. Left lower leg cellulitis. Hypertension. Plan: Wound has healed. Minimal area of erythema noted around the periwound area. Patient does state that she used a tape she developed an allergic reaction to. Adaptic to the area for the next 2 weeks. Patient advised to keep the area well covered especially when she has to be at work. Moisturize skin adequately. Edema management. Avoid idle standing. Elevate lower extremity when sitted. Discharged from the wound clinic. This note was generated with Dragon dictation software. It may contain incorrect words, spelling, and punctuation that were not noted in checking the note before signing.
== END 2018-01-16 23:59 ==
LOC: WC 10:15
PROVIDERS: PCP Family Medicine; Visit Provider Internal Medicine
DX: L97.822 Non-pressure chronic ulcer of other part of left lower leg with fat layer exposed (principal); I10 Essential (primary) hypertension; L97.322 Non-pressure chronic ulcer of left ankle with fat layer exposed
CPT/HCPCS: 11042; 99213; G0463